=== PATIENT | female | born 1935 | race Caucasian/White ===

== ENCOUNTER 2020-01-19 11:50 | Inpatient (IN) | payer MEDICARE, BC, SELFPAY ==
--- NOTE | ~2020-01-19 | XR_ITS ---
XR hip LT min 3V w AP pelvis 01/19/2020 12:55 Indication: Left hip pain after fall Procedure: 4 views left hip including AP pelvis Comparison: No prior studies for comparison. Findings: There is a nondisplaced left femoral subcapital fracture. Mild osteoarthritis of the hips. There is lower lumbar spondylosis. Sacral foramen are symmetric. Impression: 1: Nondisplaced left femoral subcapital fracture. Reviewed, dictated and finalized at location A. ING MACHINE COLLECTOR Impression: 1: Nondisplaced left femoral subcapital fracture.
--- NOTE | ~2020-01-19 | XR_ITS ---
XR surgery orthopedic 01/20/2020 09:05 Indication: Left hip pinning. Procedure: 3 fluoroscopic images left hip. 45 seconds of fluoroscopy. Comparison: Left hip series dated 01/19/2020 Findings: Interval placement of 3 lag screws transfixing left femoral subcapital fracture in near-tess tomic alignment. Please refer to procedural report. Impression: 1: Near-anatomic alignment of left femoral subcapital fracture status post intraoperative pinning wit h 3 lag screws. Reviewed, dictated and finalized at location A. Impression: 1: Near-anatomic alignment of left femoral subcapital fracture status post intr aoperative pinning with 3 lag screws.
--- NOTE | ~2020-01-19 | XR_ITS ---
XR lumbar spine 2-3V 01/19/2020 12:55 Indication: Low back pain after fall Procedure: 3 views lumbar spine Comparison: 01/20/2017 Findings: There is grade 1 degenerative spondylolisthesis at L4-5. There is disc narrowing at L3-4, L 4-5 and L5-S1. There is moderate multilevel facet hypertrophy. There is an age-indeterminate superior endplate compression fracture of T12. Sacral foramen are symmetric. Impression: 1: Age-indeterminate superior endplate compression fracture of T12. 2: Moderate lumbar spondylosis. Reviewed, dictated and finalized at location A. OR LEGAL SECRETARY Impression: 1: Age-indeterminate superior endplate compression fracture of T12. 2: Moderate lumbar spondylosis.
[2020-01-19 11:55] VITALS: BP 146/101; PULSE 76; RESP 17; TEMP 36.3; O2SAT 95
--- NOTE | 2020-01-19 12:08 | ED.FALL ---
HPI - Fall General Chief Complaint: Fall Stated Complaint: fall, generalized pain Time Seen by Provider: 01/19/20 12:04 Source: patient, family and RN notes reviewed Mode of arrival: ambulatory Limitations: no limitations History of Present Illness HPI Narrative: Pt is a 84 y/o female who presents to the ED with c/o fall happening yesterday. According to the pt's family, she has been complaining of pain and weakness in her lt hip for roughly the past month. She notes that the pt has had several recent falls due to her lt hip giving out on her. Pt states that she was trying to get up from her couch yesterday when her lt hip again gave way causing her to fall onto the ground. She notes that she struck her lt hip on the ground during the fall, but denies any head injury or LOC. Pt reports lt hip pain, back pain, neck pain, and a frontal headache s/p the fall, but denies any CP or ABD pain. She notes that she has been able to walk using her walker after the fall. MD complaint: fall Onset (ago): day(s) (1) Fall from: other (couch) Place fall occurred: home Loss of consciousness: none Location of injury - extremities: Left: thigh (lt hip) Associated symptoms (after fall): headache (frontal), neck pain and other (lt hip pain; back pain) Related Data Home Medications Medication Instructions Recorded Confirmed amlodipine 01/19/20 hydrocodone-acetaminophen 01/19/20 rivastigmine 01/19/20 spironolactone 01/19/20 Allergies Allergy/AdvReac Type Severity Reaction Status Date / Time erythromycin base Allergy Intermediate HIVES, Verified 01/19/20 11:59 SWELLING Sulfa (Sulfonamide Allergy Unknown Verified 01/19/20 12:00 Antibiotics) Review of Systems Review of Systems: All systems reviewed & are unremarkable except as noted in HPI and below Constitutional: Constitutional: Reports headache(s) (frontal) Cardiovascular: Cardiovascular: Denies chest pain and Denies dyspnea Gastrointestinal: Gastrointestinal: Denies abdominal pain, Denies diarrhea, Denies nausea and Denies vomiting Musculoskeletal: Musculoskeletal: Reports back pain, Reports arthralgias (lt hip pain) and Reports neck pain Neurologic: Denies other (head injury; LOC) [facility] Past Medical History Medical History Cataracts, bilateral GI bleed Hemorrhoids History of rectal polyps HTN (hypertension) IBS (irritable bowel syndrome) Shingles UTI (urinary tract infection) Surgical History Surgical History Hx of cataract surgery Hx of dilation and curettage Family History Family History (Updated 06/11/16 @ 23:21 by DOCTOR UNKNOWN) Sibling Patient's brother is in good health Family history of lung cancer Patient's brother is Mother Family history of malignant neoplasm Patient's mother is Father Family history of lung cancer Patient's father is Social History Social History Smoking status: Never smoker Alcohol intake: never Exam Const: General: no acute distress and well developed Orientation/consciousness: oriented to person, oriented to place, oriented to time and patient oriented x3 HENMT: Head: normocephalic Neck: Neck: normal visual inspection and full ROM Chest: Chest palpation & inspection: normal inspection of the chest and no tenderness Resp: Effort & Inspection: normal respiratory effort Auscultation: clear to auscultation bilaterally Cardio: Rate: regular rate Rhythm: regular rhythm GI: GI Palp: No abdominal tenderness and Yes Soft to palpation Back/Spine/Pelvis: Thoracic/Lumbar Spine: paraspinal muscle tenderness (lt lumbar paraspinal tenderness) Skin: General skin exam: normal color and turgor normal Neuro: General: oriented to person, oriented to place, oriented to time and patient oriented x3 Cogni
[2020-01-19 13:13] LABS: Basophils Percent Auto 0.3 % (0.2-1.2); Eosinophils Percent Auto 0.3 % (0-4.4); Hemoglobin 12.1 g/dL (12.0-15.0); Immature Granulocyte Absolute 0.01 K/mm3 (0.00-0.031); Immature Granulocyte Percent A 0.1 % (0-0.5); Lymphocytes Absolute Auto 0.96 K/mm3 (0.9-3.2); Lymphocytes Percent Auto 13.4 % (18.3-44.2); Mean Corpuscular HGB Conc 31.8 g/dl (32-36); Mean Corpuscular Hemoglobin 29.2 pg (26-34); Mean Corpuscular Volume 91.6 fl (80-100); Mean Platelet Volume 9.6 fl (7.4-10.4); Monocytes Absolute Auto 0.6 K/mm3 (0.1-0.6); Monocytes Percent Auto 8.3 % (2.6-8.5); Neutrophils Absolute Auto 5.6 K/mm3 (1.3-6.7); Neutrophils Percent Auto 77.6 % (45.5-73.1); Platelet Count Result 176 k/mm3 (150-375); Red Blood Count 4.15 M/mm3 (4.2-5.4); Red Cell Distribution Width 13.5 % (11.5-14.5); White Blood Count 7.2 K/mm3 (4.5-10.0)
[2020-01-19 13:25] LABS: Blood Urea Nitrogen 15 mg/dL (7-17); Calcium 9.1 mg/dL (8.4-10.2); Carbon Dioxide 28 mmol/L (22-30); Chloride 101 mmol/L (98-107); Estimated CRCL calculation 49 ml/min; Estimated Glomerular Filt Rate > 60; Glucose 113 mg/dL (65-105); Sodium 134 mmol/L (137-145)
[2020-01-19 13:37] VITALS: BP 133/79; PULSE 78; RESP 13; O2SAT 98
[2020-01-19 13:55] LABS: Partial Thromboplastin Time 25.8 SECONDS (22.3-36.8); Prothrombin Time 12.8 Seconds (11.1-14.7)
--- NOTE | 2020-01-19 14:21 | PC.NURSE ---
Patient asking to get up to urinate. Informed patient of strict bed rest. Asked her if she would like to get on bedpan, yelling out in pain while moving, discussed possible patino placement, patient agreeable, dr goldstein agreeable.
[2020-01-19 14:56] VITALS: BP 125/68; PULSE 74; RESP 17; O2SAT 100
--- NOTE | 2020-01-19 18:00 | PM.IMHP ---
H&P: HPI History of Present Illness Chief complaint: Left leg pain after fall last night. Narrative: Belgica Archuleta is an 84-year-old female with dementia and hypertension who presented to the emergency department earlier this afternoon via private vehicle from home for evaluation of left leg pain after a fall that occurred last evening. She has pretty significant short-term memory loss and she is not able to provide an accurate history. Her , daughter, and son are at bedside and they do provide additional history. Last evening at approximately 22:50, she and her were getting ready to go to bed and notes that when the patient stood up she complained of feeling weak, and fell down onto her left side. She was unable to get herself up and so the rolled her onto a mat and they both slept on the floor last night. He attempted to get her up this morning, however she was unable to do so due to severe pain in the left leg and thus they called their son-in-law for help. He was able to pick the patient up in a drove her to the hospital, she where she was found to have a left hip fracture. Her pain is pretty well controlled at this time unless I asked her to move the leg. She does not recall what happened yesterday. denies that she had loss of consciousness and states no head trauma. She denies paresthesias, skin color, and temperature changes distal to the fracture. Review of Systems Review of Systems: Narrative: Twelve systems were reviewed but are not limited given her significant short-term memory loss. Both the patient and her family members deny recent cold or flu symptoms. She has complained of chest pain a couple of times in the past 6 months, but no workup was pursued. It is noted that she had a treadmill stress echo in June 2015 which was unremarkable. Family member states that she is quite spry and active. She never complains of shortness of breath. No nausea, vomiting, or diarrhea. She has had several urinary tract infections in the last several months, frequently complaining of urinary incontinence. She denies such at this time. Except as documented, all other systems were reviewed and are negative. [facility] Past Medical History Medical History (Updated 01/19/20 @ 22:25 by Yesenia Rabago PA-C) Arthritis Chronic neck pain Dementia History of rectal polyps HTN (hypertension) IBS (irritable bowel syndrome) Shingles Surgical History Surgical History Hx of cataract surgery Hx of dilation and curettage Family History Family History Sibling Family history of lung cancer Patient's brother is in good health Patient's brother is Mother Family history of malignant neoplasm Patient's mother is CHF (congestive heart failure) Father Family history of lung cancer Patient's father is Mother No problems noted. Social History Social History (Updated 01/19/20 @ 22:23 by Yesenia Rabago PA-C) Social History: The patient lives in [place] with her of nearly 65 years. They have 5 children. Her daughter Chelsi Rouse is her healthcare power of deputy county attorney, and the patient is a do not resuscitate. She is a lifelong nonsmoker. No alcohol or drug use. Spiritual care concerns: No Agree to blood products: Yes Meds Home Medications and Allergies Home Medications Medication Instructions Recorded Confirmed Type amlodipine 5 mg PO DAILY 01/19/20 01/19/20 History hydrocodone-acetaminophen 1 tablet PO TID PRN 01/19/20 01/19/20 History nxopwpzs-fnt-kctq-FA-lutein 1 tablet PO DAILY 01/19/20 01/19/20 History [Centrum Silver Women] rivastigmine 9.5 mg TRANSDERMAL DAILY 01/19/20 01/19/20 History spironolactone 25 mg PO DAILY 01/19/20 01/19/20 History Allergies Allergy/AdvReac Type Sev
--- NOTE | 2020-01-19 18:20 | PC.NURSE ---
Patient admitted from ER @1510. Patient oriented to room, call light within reach, family members & patient updated on plan of care.
--- NOTE | 2020-01-19 19:48 | ECG_ITS ---
Measurements Intervals [place] Rate: 69 P: 77 CO: 154 QRS: 80 QRSD: 129 T: 51 QT: 391 QTc: 419 Interpretive Statements SINUS RHYTHM RIGHT BUNDLE BRANCH BLOCK BASELINE ARTIFACT- I, II, AVR ABNORMAL ECG Electronically Signed On 01-20-2020 8:23:02 CDT by Scott Brandt D.O.
--- NOTE | 2020-01-19 19:49 | WPDANESEPP ---
Anes - Eval Pre Procedure Procedure: Left hip pinning Date/Time: 01/19/20 19:49 Surgeon: Aurelia Preop Diagnosis: Left femoral neck fracture Pre Op Diagnosis: left femoral neck fracture Patient Data Age: 84 Gender: F Height: 5 ft 5 in Weight: 50.9 kg Last Vital Signs Temp 97.3 F L 01/19/20 11:55 Pulse 74 01/19/20 14:56 Resp 17 01/19/20 14:56 BP 125/68 01/19/20 14:56 Pulse Ox 100 01/19/20 14:56 Allergies Allergy/AdvReac Type Severity Reaction Status Date / Time erythromycin base Allergy Intermediate HIVES, Verified 01/19/20 11:59 SWELLING Sulfa (Sulfonamide Allergy Unknown Verified 01/19/20 12:00 Antibiotics) Home Medications Medication Instructions Recorded Confirmed Type amlodipine 5 mg PO DAILY 01/19/20 01/19/20 History hydrocodone-acetaminophen 1 tablet PO TID PRN 01/19/20 01/19/20 History jgrcgdpg-tnv-wxih-FA-lutein 1 tablet PO DAILY 01/19/20 01/19/20 History [Centrum Silver Women] rivastigmine 9.5 mg TRANSDERMAL DAILY 01/19/20 01/19/20 History spironolactone 25 mg PO DAILY 01/19/20 01/19/20 History Laboratory Tests 01/19/20 01/19/20 01/19/20 13:07 13:07 13:07 WBC 7.2 K/mm3 K/mm3 (4.5-10.0) RBC 4.15 M/mm3 L M/mm3 (4.2-5.4) Hgb 12.1 g/dL g/dL (12.0-15.0) Hct 38.0 % % (37.0-47.0) MCV 91.6 fl fl (80-100) MCH 29.2 pg pg (26-34) MCHC 31.8 g/dl L g/dl (32-36) RDW 13.5 % % (11.5-14.5) Plt Count 176 k/mm3 k/mm3 (150-375) MPV 9.6 fl fl (7.4-10.4) Immature Gran % (Auto) 0.1 % % (0-0.5) Neut % (Auto) 77.6 % H % (45.5-73.1) Lymph % (Auto) 13.4 % L % (18.3-44.2) [place] % (Auto) 8.3 % % (2.6-8.5) Eos % (Auto) 0.3 % % (0-4.4) Baso % (Auto) 0.3 % % (0.2-1.2) Lymph # (Auto) 0.96 K/mm3 K/mm3 (0.9-3.2) [place] # (Auto) 0.6 K/mm3 K/mm3 (0.1-0.6) Eos # (Auto) 0.0 K/mm3 K/mm3 (0-0.3) Baso # (Auto) 0.0 K/mm3 K/mm3 (0.0-0.1) Abs Immat Gran (auto) 0.01 K/mm3 K/mm3 (0.00-0.031) Absolute Neuts (auto) 5.6 K/mm3 K/mm3 (1.3-6.7) Absolute Nucleated RBC 0.0 K/mm3 K/mm3 (0.0-0.012) Nucleated RBC % 0.0 % % (0.0-0.2) PT 12.8 Seconds Seconds (11.1-14.7) INR 1.0 APTT 25.8 SECONDS SECONDS (22.3-36.8) Sodium 134 mmol/L L mmol/L (137-145) Potassium 4.0 mmol/L mmol/L (3.4-5.0) Chloride 101 mmol/L mmol/L (98-107) Carbon Dioxide 28 mmol/L mmol/L (22-30) BUN 15 mg/dL mg/dL (7-17) Creatinine 0.60 mg/dL L mg/dL (0.7-1.0) Estim Creat Clear Calc 49 ml/min ml/min Estimated GFR > 60 (59 - ) Glucose 113 mg/dL H mg/dL (65-105) Calcium 9.1 mg/dL mg/dL (8.4-10.2) Blood Type Antibody Screen 01/19/20 13:45 WBC RBC Hgb Hct MCV MCH MCHC RDW Plt Count MPV Immature Gran % (Auto) Neut % (Auto) Lymph % (Auto) [place] % (Auto) Eos % (Auto) Baso % (Auto) Lymph # (Auto) [place] # (Auto) Eos # (Auto) Baso # (Auto) Abs Immat Gran (auto) Absolute Neuts (auto) Absolute Nucleated RBC Nucleated RBC % PT INR APTT Sodium Potassium Chloride Carbon Dioxide BUN Creatinine Estim Creat Clear Calc Estimated GFR Glucose Calcium Blood Type O Negative Antibody Screen Negative Patient hx anesthesia problems: none Family hx anesthesia problems: none [facility] Past Medical History Medical History (Updated 01/19/20 @ 19:52 by Kirit Angel CRNA) Angina at rest Arthritis Cataracts, bilateral Closed subcapital fracture of left femur Demen
[2020-01-19 22:00] VITALS: BP 131/77; PULSE 75; RESP 16; TEMP 37; O2SAT 97
[2020-01-20] VITALS (13 sets, daily range): BP systolic 98–136; BP diastolic 56–78; PULSE 56–81; RESP 12–18; TEMP 36.2–37.2; O2SAT 95–100; BMI 19.3
--- NOTE | 2020-01-20 03:42 | PC.NURSE ---
Daylight Savings Time For Daylight Savings Time Ending in the Fall - Clocks are moved back. For Daylight Savings Time Beginning in the Spring - Clocks are moved ahead. For [facility], the time of change occurs at 0200 hrs. Time is taken from the food and beverage server. This entry on the patient's chart recognizes the change in time reflected during documentation. Example: 2 entries for vital signs may be charted for 0200 hrs.
[2020-01-20 05:54] LABS: Basophils Percent Auto 0.4 % (0.2-1.2); Eosinophils Absolute Auto 0.2 K/mm3 (0-0.3); Eosinophils Percent Auto 2.5 % (0-4.4); Hematocrit 35.2 % (37.0-47.0); Hemoglobin 11.4 g/dL (12.0-15.0); Immature Granulocyte Absolute 0.01 K/mm3 (0.00-0.031); Immature Granulocyte Percent A 0.1 % (0-0.5); Lymphocytes Percent Auto 26.7 % (18.3-44.2); Mean Corpuscular HGB Conc 32.4 g/dl (32-36); Mean Corpuscular Hemoglobin 29.9 pg (26-34); Mean Corpuscular Volume 92.4 fl (80-100); Mean Platelet Volume 10.1 fl (7.4-10.4); Monocytes Absolute Auto 0.8 K/mm3 (0.1-0.6); Neutrophils Absolute Auto 3.9 K/mm3 (1.3-6.7); Neutrophils Percent Auto 58.3 % (45.5-73.1); Platelet Count Result 168 k/mm3 (150-375); Red Blood Count 3.81 M/mm3 (4.2-5.4); Red Cell Distribution Width 13.6 % (11.5-14.5); White Blood Count 6.8 K/mm3 (4.5-10.0)
[2020-01-20 06:05] LABS: Blood Urea Nitrogen 12 mg/dL (7-17); Calcium 8.6 mg/dL (8.4-10.2); Carbon Dioxide 28 mmol/L (22-30); Chloride 103 mmol/L (98-107); Estimated CRCL calculation 49 ml/min; Estimated Glomerular Filt Rate > 60; Glucose 105 mg/dL (65-105); Potassium 3.8 mmol/L (3.4-5.0); Sodium 135 mmol/L (137-145)
[2020-01-20] MEDS: IBUPROFEN IV 400 MG in SODIUM CHLORIDE 0.9% IV 100 ML 200 MG IVPB (06:08)
[2020-01-20] MEDS: ceFAZolin 2 GM/D5W 50 ML 2 GM/50 ML BAG IVPB (06:54)
--- NOTE | 2020-01-20 07:55 | WPDANESEFPP ---
Anes - Eval Final PreProcedure Day of Procedure 01/20/20 07:55 Patient weight: normal Heart: regular rate and rhythm Lungs: clear to auscultation and normal air movement Airway: Mallampati scale class II Neurological: confused Last oral intake: >/= 8 hours ASA classification: III Emergent: no Anesthetic plan: proceed Anesthesia type and monitoring: general LMA Informed Consent: The patient's anesthetic plan and its attendant risks and benefits were discussed with the patient/family/POA. Questions were solicited and answers provided to the satisfaction of the patient/family/POA.
--- NOTE | 2020-01-20 07:59 | PM.CNOR ---
Assessment and Plan Assessment and plan (1) Closed subcapital fracture of left femur: Qualifiers: Encounter type: initial encounter Qualified Code(s): S72.012A - Unspecified intracapsular fracture of left femur, initial encounter for closed fracture Code(s): S72.012A - Unspecified intracapsular fracture of left femur, initial encounter for closed fracture Status: Acute Assessment and Plan: 84-year-old with increasing left hip pain which became severe yesterday. Impacted left hip subcapital femoral neck fracture on radiographs. Discussed nonoperative and operative treatment options with the patient and family. Risks and benefits of each as well as alternatives were reviewed. All of the patient's questions were answered. The risks of surgery reviewed including but not limited to: Neurovascular damage, wound complication, infection, blood clot, pulmonary embolus, stroke, myocardial infarction, and anesthetic risks up to and including . Continued pain and possible dysfunction were explained. Specific risks of the procedure including later recurrence of deformity. No guarantees were offered. If hardware used, discussed risk of failure/ breakage and possible need for removal. If complications occur, the patient understands the need for further treatment, possible further surgery. Patient verbalizes understanding and wishes to proceed. PLAN: Left hip fracture percutaneous pin fixation (2) Compression fracture of T12 vertebra: Qualifiers: Encounter type: sequela Qualified Code(s): S22.080S - Wedge compression fracture of T11-T12 vertebra, sequela Code(s): S22.080A - Wedge compression fracture of T11-T12 vertebra, initial encounter for closed fracture Status: Acute Assessment and Plan: Remote history of previous T12 compression fracture. Currently without pain, no tenderness on exam. Bilateral lower extremities neurovascular intact. Continue with conservative treatment. History of Present Illness HPI Consult date: 01/20/20 Requesting physician: Senthil Wan MD Consult reason: fracture (Left hip) Chief complaint: Left leg pain after fall last night. Narrative: 84-year-old woman at her usual activity level yesterday when felt pain left hip. Unable to bear weight. Presented to emergency room where radiographs show left hip fracture. Admitted for further care. She had had prodrome pain the past 2 months in the left hip. No other injury. Denies head neck or back problems. Denies loss of consciousness. Complains of left hip pain with movement of leg. Denies numbness or tingling. Review of Systems Constitutional: Constitutional: Denies fever(s) Eyes: Eyes: Denies blurry vision ENT: Reports Normal hearing present Cardiovascular: Cardiovascular: Denies chest pain and Denies dyspnea Respiratory: Respiratory: Denies dyspnea and Denies wheezing Gastrointestinal: Gastrointestinal: Denies abdominal pain Genitourinary: Genitourinary: Denies urinary urgency Musculoskeletal: Musculoskeletal: Reports as per HPI and Denies numbness Integumentary/Breasts: Skin/Breast: Denies changing lesions and Denies sores Neurologic: Reports Normal hearing present, Denies behavioral changes, Denies confusion, Denies numbness and Denies convulsions Psychiatric: Psychiatric: Denies behavioral changes, Denies confusion and Denies hallucinations Endocrine: Endocrine: Denies heat intolerance Hematologic/Lymphatic: Hematologic/Lymphatic: Denies easy bleeding Allergic/Immunologic: Allergic/Immunologic: Denies wheezing PMFSH Past Medical History Medical History Arthritis Chronic neck pain Dementia History of rectal polyps HTN (hypertension) IBS (irritable bowel syndrome) Shingles Surgical History Surgical History Hx of cataract surgery Hx of dilation and curettage
[2020-01-20] MEDS: IBUPROFEN IV 800 MG/200 ML 800 MG/200 ML BAG 400 MG IVPB (08:42)
[2020-01-20] MEDS: BUPIVACAINE/EPINEPHRINE 0.5% 10 ML VIAL INFILTRATE ×2 (09:01→09:07)
--- NOTE | 2020-01-20 09:05 | SUR.OPER ---
Ebl=5ml
[2020-01-20] MEDS: LACTATED RINGERS 1,000 ML 30 ML IV CONT (09:15)
--- NOTE | 2020-01-20 09:18 | P.OP_ITS ---
Procedure Note - Detailed Date of procedure: 01/20/20 Pre-op diagnosis: Left hip subcapital fracture. Post-op diagnosis: same Procedure performed: Left hip pinning Description of procedure: Indications: 84-year-old woman fall onto left hip. L eft hip femoral neck fracture. Patient and power of assistant attorney general discussed treatment options with surgery and non operative treatment including risks and benefits. They desire operative treatment. Implants used: [employer] 6.5 millimeter cannulated screw x3 What was done: Informed consent signed. Extremity marked in preoperative holding area. Patient received intravenous antibiotics. Brought to operating room and underwent general anesthetic by the Anesthesia Team. Positioned supine on the fracture table. Left leg placed into longitudinal traction. Right leg extended out of field. Image intensification brought in and confirmed reduction of fracture. Left hip prepped and draped in usual sterile surgical fashion using ChloraPrep skin solution. Image intensification used to guide the starting position and a longitudinal incision made with 10 blade knife over the lateral proximal femur. Blunt dissection carried down to the lateral femur. Bleeding controlled with electrocautery. First guide pin placed in the inferior center position of the femoral neck and head. Confirmed with image intensification. Two subsequent pins placed superior and anterior and superior and posterior to the 1st pin to create an inverted triangle type pattern. Pins confirmed with image intensification. Length of screw measured, reaming performed. Appropriate size screw placed with good compression and fixation noted for all 3 pins. Guide pins removed. Final image intensification confirmed reduction of fracture and placement of hardware with threads past the fracture line and no protrusion of the hip joint. Wound thoroughly irrigated with antibiotic solution. Fascia repaired with 2 0 Vicryl interrupted sutures. Subcutaneous tissue repaired with 3 0 Monocryl interrupted suture. Skin approximated with 3 0 Monocryl running suture. Sterile dressing applied. Patient awoken from anesthesia, extubated and returned to recovery room in stable condition. All sponge needle and instrument counts correct at the end of the case. Implants: Biomet 6.5 mm cannulated screw with 22 mm thread 70 mm, 75 mm, 80 mm Anesthesia: GLMA and GETA Surgeon: Dominic Sultana MD Naphthalene Still Operator: 1st assistant casino shift manager Estimated blood loss (mL): 5 Drains: No Packing: No Pathology: none sent Complications: None Condition: stable Disposition: PACU
--- NOTE | 2020-01-20 12:44 | PM.IMPN ---
Progress Note: A&P Assessment and Plan (1) Closed subcapital fracture of left femur: Qualifiers: Encounter type: initial encounter Qualified Code(s): S72.012A - Unspecified intracapsular fracture of left femur, initial encounter for closed fracture Code(s): S72.012A - Unspecified intracapsular fracture of left femur, initial encounter for closed fracture Status: Acute Assessment and Plan: Secondary to mechanical fall 01/18/2020. Dr. Sultana consulted and preformed left hip pinning surgery this morning on the patient. The patient is resting comfortably and denies any pain at this time. Pain management per Dr. Sultana Discharge planning per Dr. Sultana Post-op care per Dr. Sultana DVT Prophylaxis per Dr. Sultana (2) Compression fracture of T12 vertebra: Qualifiers: Encounter type: sequela Qualified Code(s): S22.080S - Wedge compression fracture of T11-T12 vertebra, sequela Code(s): S22.080A - Wedge compression fracture of T11-T12 vertebra, initial encounter for closed fracture Status: Acute Assessment and Plan: Age indeterminate superior endplate compression fracture of T12 noted on imaging. Will need PT/OT after hip is repaired. She denies any back pain at this time. Will see if Dr. Sultana recommends a back brace for her compression fracture. No neurologic deficits. (3) HTN (hypertension): Code(s): I10 - Essential (primary) hypertension Status: Acute Assessment and Plan: Blood pressures were reviewed and they are well controlled. Continue antihypertensives and monitor daily. 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 She is on Vicodin at home daily. (5) Dementia: Code(s): F03.90 - Unspecified dementia without behavioral disturbance Status: Acute Assessment and Plan: Suffers from pretty significant short-term memory loss. Will likely need frequent free orientation. Monitor for closely and initiate fall precautions. Time Spent With Patient Time with patient: 25 - 35 minutes Subjective Date/time seen: 01/20/20 12:44 Interval history: Date of service 01/20/2020: The patient is feeling much better after her surgery earlier this morning. She states her pain is under control at this time. She denies any chest pain, shortness of breath, cough, sore throat, nausea, vomiting, abdominal pain, leg swelling, calf pain, headache or any other symptoms at this time. Review of Systems Review of Systems: All systems reviewed & are unremarkable except as noted in HPI and below Exam Narrative: Exam Narrative: General: 84-year-old woman laying flat in bed with the head elevated at 30?. Appears comfortable. In no acute distress. Skin: No jaundice or cyanosis. Good skin turgor. Neck: Full range of motion. Supple. Respiratory: Lungs are clear to auscultation bilaterally. No bony chest wall tenderness. Cardiovascular: The heart has a regular rate and rhythm without murmur. Lower extremities: No lower extremity edema. Distal pulses are easily palpated. No calf tenderness to palpation.Neurovascularly intact distally. Gastrointestinal: The abdomen is soft, nontender and nondistended with active bowel sounds. Psychiatric: Demented. memory intact. Neurologic: Alert and answering questions appropriately as to what is going on right now. She is confused as to what happened when she had fallen. No focal deficits. Speech is clear. No facial drooping. Objective Data Vital Signs Vital Signs: Vital Signs - 24 hr 01/19/20 11:55 01/19/20 13:37 01/19/20 14:56 Temperature 97.3 F L Pulse Rate 76 78 74 Respiratory Rate 17 13 17 Blood Pressure 146/101 H 133/79 125/68 Pulse Oximetry 95 98 100 01/19/20 22:00 01/20/20 06:00
--- NOTE | 2020-01-20 12:44 | P.PNIM_ITS ---
Progress Note: A&P Assessment and Plan (1) Closed subcapital fracture of left femur: Qualifiers: Encounter type: initial encounter Qualified Code(s): S72.012A - Unspecified intracapsular fracture of left femur, initial encounter for closed fracture Code(s): S72.012A - Unspecified intracapsular fracture of left femur, initial encounter for closed fracture Status: Acute Assessment and Plan: * Secondary to mechanical fall 01/18/2020. * Dr. Sultana consulted and preformed left hip pinning surgery this morning on the patient. * The patient is resting comfortably and denies any pain at this time. * Pain management per Dr. Sultana * Discharge planning per Dr. Sultana * Post-op care per Dr. Sultana * DVT Prophylaxis per Dr. Sultana (2) Compression fracture of T12 vertebra: Qualifiers: Encounter type: sequela Qualified Code(s): S22.080S - Wedge compression fracture of T11-T12 vertebra, sequela Code(s): S22.080A - Wedge compression fracture of T11-T12 vertebra, initial encounter for closed fracture Status: Acute Assessment and Plan: * Age indeterminate superior endplate compression fracture of T12 noted on imaging. * Will need PT/OT after hip is repaired. * She denies any back pain at this time. * Will see if Dr. Sultana recommends a back brace for her compression fracture. * No neurologic deficits. (3) HTN (hypertension): Code(s): I10 - Essential (primary) hypertension Status: Acute Assessment and Plan: * Blood pressures were reviewed and they are well controlled. * Continue antihypertensives and monitor daily. (4) Chronic neck pain: Code(s): M54.2 - Cervicalgia; G89.29 - Other chronic pain Status: Acute Assessment and Plan: * Family members report she has significant arthritic changes in the neck. * She is on Vicodin at home daily. (5) Dementia: Code(s): F03.90 - Unspecified dementia without behavioral disturbance Status: Acute Assessment and Plan: * Suffers from pretty significant short-term memory loss. * Will likely need frequent free orientation. * Monitor for closely and initiate fall precautions. Time Spent With Patient Time with patient: 25 - 35 minutes Subjective Date/time seen: 01/20/20 12:44 Interval history: Date of service 01/20/2020: The patient is feeling much b abilio after her surgery earlier this morning. She states her pain is under control at this time. She denies any chest pain, shortness of breath, cough, sore throat, nausea, vomiting, abdominal pain, leg swelling, calf pain, headache or any other symptoms at this time. Review of Systems Review of Systems: All systems reviewed & are unremarkable except as noted in HPI and below Exam Narrative: Exam Narrative: General: 84-year-old woman laying flat in bed with the head elevated at 30?. Appears comfortable. In no acute distress. Skin: No jaundice or cyanosis. Good skin turgor. Neck: Full range of motion. Supple. Respiratory: Lungs are clear to auscultation bilaterally. No bony chest wall tenderness. Cardiovascular: The heart has a regular rate and rhythm without murmur. Lower extremities: No lower extremity edema. Distal pulses are easily palpated. No calf tenderness to palpation.Neurovascularly intact distally. Gastrointestinal: The abdomen is soft, nontender and nondistended with active bowel sounds. Psychiatric: Demented. memory intact. Neurologic: Alert and answering questions appropr
[2020-01-20] MEDS: AMLODIPINE BESYLATE 5 MG TABLET PO (13:11)
[2020-01-20] MEDS: RIVASTIGMINE TARTRATE 9.5 MG PATCH 1 PATCH TRANSDERM (13:12)
[2020-01-20] MEDS: SPIRONOLACTONE 25 MG TABLET PO (13:12)
[2020-01-20] MEDS: DOCUSATE SODIUM 100 MG CAPSULE PO (19:10)
[2020-01-20] MEDS: FAMOTIDINE 20 MG TABLET PO (21:06)
[2020-01-21 06:00] VITALS: BP 122/60; PULSE 61; RESP 20; TEMP 36.9; O2SAT 99
--- NOTE | 2020-01-21 06:49 | PC.NURSE ---
confused and disoriented, called daughter henrique who had been here until 2100, reoriented and back to sleep, attempting to get out of bed at 0630, slapping at nurse, says she is going home to have coffee with her , unable to reorientate for half an hour, 1 on 1--now allows this nurse to assist back to bed and she says she will wait until henrique gets here. bed alarm on, comfort measures offered
[2020-01-21 07:47] LABS: Basophils Percent Auto 0.2 % (0.2-1.2); Eosinophils Percent Auto 0.4 % (0-4.4); Hematocrit 36.1 % (37.0-47.0); Hemoglobin 11.8 g/dL (12.0-15.0); Immature Granulocyte Absolute 0.04 K/mm3 (0.00-0.031); Immature Granulocyte Percent A 0.4 % (0-0.5); Lymphocytes Absolute Auto 1.97 K/mm3 (0.9-3.2); Lymphocytes Percent Auto 19.6 % (18.3-44.2); Mean Corpuscular HGB Conc 32.7 g/dl (32-36); Mean Corpuscular Hemoglobin 29.9 pg (26-34); Mean Corpuscular Volume 91.6 fl (80-100); Mean Platelet Volume 9.9 fl (7.4-10.4); Monocytes Absolute Auto 1.2 K/mm3 (0.1-0.6); Monocytes Percent Auto 12.2 % (2.6-8.5); Neutrophils Absolute Auto 6.8 K/mm3 (1.3-6.7); Neutrophils Percent Auto 67.2 % (45.5-73.1); Platelet Count Result 186 k/mm3 (150-375); Red Blood Count 3.94 M/mm3 (4.2-5.4); Red Cell Distribution Width 13.5 % (11.5-14.5); White Blood Count 10.1 K/mm3 (4.5-10.0)
[2020-01-21 08:01] LABS: Blood Urea Nitrogen 10 mg/dL (7-17); Calcium 8.9 mg/dL (8.4-10.2); Carbon Dioxide 31 mmol/L (22-30); Chloride 102 mmol/L (98-107); Estimated CRCL calculation 50 ml/min; Estimated Glomerular Filt Rate > 60; Glucose 103 mg/dL (65-105); Potassium 3.5 mmol/L (3.4-5.0); Sodium 139 mmol/L (137-145)
[2020-01-21] MEDS: FAMOTIDINE 20 MG TABLET PO ×2 (08:47→20:20)
[2020-01-21] MEDS: THERAPEUTIC MULTIVITAMINS/MINERALS TAB (*BKC) 1 TABLET PO (08:47)
[2020-01-21] MEDS: FONDAPARINUX SODIUM 2.5 MG/0.5 ML SYRINGE SUB-Q (08:47)
[2020-01-21] MEDS: AMLODIPINE BESYLATE 5 MG TABLET PO (08:47)
[2020-01-21] MEDS: DOCUSATE SODIUM 100 MG CAPSULE PO ×2 (08:49→17:06)
[2020-01-21] MEDS: SPIRONOLACTONE 25 MG TABLET PO (08:49)
[2020-01-21] MEDS: RIVASTIGMINE TARTRATE 9.5 MG PATCH 1 PATCH TRANSDERM (08:49)
--- NOTE | 2020-01-21 09:15 | PM.IMPN ---
Progress Note: A&P Assessment and Plan (1) Closed subcapital fracture of left femur: Qualifiers: Encounter type: initial encounter Qualified Code(s): S72.012A - Unspecified intracapsular fracture of left femur, initial encounter for closed fracture Code(s): S72.012A - Unspecified intracapsular fracture of left femur, initial encounter for closed fracture Status: Acute Assessment and Plan: Secondary to mechanical fall 01/18/2020. Dr. Sultana consulted and preformed a left hip pinning surgery 01/20/2020 The patient is resting comfortably and working with physical therapy at this time. Pain management per Dr. Sultana Discharge planning per Dr. Sultana Post-op care per Dr. Sultana DVT Prophylaxis per Dr. Sultana Continue monitoring patient's symptoms, PT/OT, and see when the patient is stable for discharge from a an orthopedic surgery standpoint (2) Compression fracture of T12 vertebra: Qualifiers: Encounter type: sequela Qualified Code(s): S22.080S - Wedge compression fracture of T11-T12 vertebra, sequela Code(s): S22.080A - Wedge compression fracture of T11-T12 vertebra, initial encounter for closed fracture Status: Acute Assessment and Plan: Age indeterminate superior endplate compression fracture of T12 noted on imaging. Will need PT/OT after hip is repaired. She denies any back pain at this time. Will see if Dr. Sultana recommends a back brace for her compression fracture. No neurologic deficits. (3) HTN (hypertension): Code(s): I10 - Essential (primary) hypertension Status: Acute Assessment and Plan: Blood pressures were reviewed and they are well controlled. Continue antihypertensives and monitor daily. 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 She is on Vicodin at home daily. (5) Dementia: Code(s): F03.90 - Unspecified dementia without behavioral disturbance Status: Acute Assessment and Plan: Suffers from pretty significant short-term memory loss. Will likely need frequent free orientation. Monitor for closely and initiate fall precautions. Time Spent With Patient Time with patient: 25 - 35 minutes Subjective Date/time seen: 01/21/20 09:15 Interval history: Date of service 01/21/2020: The patient is feeling well today. She states she slept well last night but became confused when she woke up this morning as to where she was. Currently her left hip pain is rated 5/10. She denies any chest pain, shortness of breath, cough, sore throat, nausea, vomiting, abdominal pain, leg swelling, calf pain, headache or any other symptoms at this time. Review of Systems Review of Systems: All systems reviewed & are unremarkable except as noted in HPI and below Exam Narrative: Exam Narrative: General: 84-year-old woman sitting up in bed working with physical therapy. Resting comfortably in no acute distress. Skin: No jaundice or cyanosis. Good skin turgor. Neck: Full range of motion. Supple. Respiratory: Lungs are clear to auscultation bilaterally. No bony chest wall tenderness. Cardiovascular: The heart has a regular rate and rhythm without murmur. Lower extremities: No lower extremity edema. Distal pulses are easily palpated. No calf tenderness to palpation. Neurovascularly intact distally. Gastrointestinal: The abdomen is soft, nontender and nondistended with active bowel sounds. Psychiatric: Demented. Neurologic: Alert and answering questions appropriately as to what is going on right now. She is confused as to what happened when she had fallen. No focal deficits. Speech is clear. No facial drooping. Objective Data Vital Signs Vital Signs: Vital Signs - 24 hr 01/20/20 09:30 01/20/20 09:45 01/20/20 10:00
[2020-01-21 09:59] VITALS: O2SAT 96
--- NOTE | 2020-01-21 12:37 | PM.PNORT ---
Progress Note: A&P Assessment and Plan (1) Closed subcapital fracture of left femur: Qualifiers: Encounter type: subsequent encounter Fracture healing: with routine healing Qualified Code(s): S72.012D - Unspecified intracapsular fracture of left femur, subsequent encounter for closed fracture with routine healing Code(s): S72.012A - Unspecified intracapsular fracture of left femur, initial encounter for closed fracture Status: Acute Assessment and Plan: Postoperative day 1., left hip pinning. Patient up to chair, stable, pain controlled. PT/OT with weight-bearing as tolerated. DVT prophylaxis with Arixtra. Patient would like to return home if possible. Subjective Subjective Date/Time Seen: 01/21/20 12:37 Patient with minimal complaints of pain. Up to chair. Exam Const: General: healthy appearing; No in distress or confusion Orientation/consciousness: patient oriented x3 and No confusion HENMT: Head: normal to inspection, normocephalic and atraumatic Eyes: Conjunctivae: conjunctivae normal Sclera: sclerae normal Resp: Effort & Inspection: normal respiratory effort and no audible wheezes Neuro: General: patient oriented x3 and No confusion Extrem: Other: Left hip incision clean dry and intact. Mild swelling. Muscle compartments soft. Negative Homans sign. Able to flex extend ankle and toes. Good sensation to touch with palpable dorsalis pedis and good capillary refill. Psych: Affect: normal affect Objective Data Vital Signs Vital Signs: Vital Signs - 24 hr 01/20/20 13:07 01/20/20 22:00 01/21/20 06:00 Temperature 97.7 F 98.3 F 98.4 F Pulse Rate 81 70 61 Respiratory Rate 18 18 20 Blood Pressure 125/76 123/65 122/60 Pulse Oximetry 98 98 99 01/21/20 09:59 Temperature Pulse Rate Respiratory Rate Blood Pressure Pulse Oximetry 96 Intake/Output Intake/Output: Intake & Output 01/18/20 01/19/20 01/20/20 01/21/20 22:59 22:59 23:59 23:59 Intake Total 570 Output Total 1350 Balance -780 Meds/Results Medications: Active Medications Generic Name Dose Route Start Last Admin Trade Name Freq PRN Reason Stop Dose Admin Acetaminophen 650 mg 01/20/20 10:58 Tylenol Tablet PO Q6H PRN Mild Pain (1-3) or Fever Hydrocodone Bitart/Acetaminophen 1 tab 01/19/20 22:28 01/21/20 07:42 [place] 5-325 Mg PO 1 tab TID PRN Administration Pain Rated 4-6 Al Hydrox/Mg Hydrox/Simethicone 30 ml 01/20/20 10:58 Mylanta PO Q6H PRN Indigestion Amlodipine Besylate 5 mg 01/20/20 09:00 01/21/20 08:47 Norvasc PO 5 mg DAILY [facility] Administration Bisacodyl 10 mg 01/20/20 10:58 Dulcolax Suppository RECTAL DAILY PRN Constipation Docusate Sodium 100 mg 01/20/20 17:00 01/21/20 08:49 Colace Capsule PO 100 mg BID [facility] Administration Famotidine 20 mg 01/20/20 21:00 01/21/20 08:47 Pepcid PO 20 mg Q12HR [facility] Administration Fentanyl Citrate 25 mcg 01/19/20 13:57 01/20/20 05:11 Sublimaze IV PUSH 25 mcg Q3H PRN Administration Pain Rated 7-10 Fondaparinux 2.5 mg 01/21/20 09:00 01/21/20 08:47 Arixtra SUB-Q 2.5 mg DAILY [facility] Administration Ibuprofen 800 mg in 200 mls @ 400 mls/hr 01/20/20 10:58 Caldolor 800 Mg/200 Ml IVPB Q6H PRN Pain Rated 4-6 Magnesium Hydroxide 30 ml 01/20/20 10:58 Milk Of Magnesia PO BID PRN Constipation Multivitamins/Calcium 1 tablet 01/20/20 09:00 01/21/20 08:47 Therapeutic Multivitamins/Minerals PO 1 tablet DAILY [facility] Administration Naloxone HCl 0.1 mg 01/20/20 10:58 Narcan IV PUSH Q2M PRN Opiate Reversal Rivastigmine 1 patch 01/20/20 09:00 01/21/20 08:49 Exelon 9.5 Mg Patch TRANSDERM 1 patch QAM [facility] Administration Spironolactone 25 mg 01/20/20 09:00 01/21/20 08:49 Aldactone PO 25 mg DAILY [facility] Administration Radiology Results: ITS Impressions Lumbar Sp
[2020-01-21 15:42] LABS: Add Urine Microscopic? YES; Appearance Urine Cloudy (Clear); Bacteria Urine Trace /hpf; Bilirubin Urine Negative (Negative); Blood Urine 1+ (Negative); Color Urine Amber (Yellow); Glucose Urine UA Negative (Negative); Ketones Urine Negative (Negative); Leukocyte Esterase Ur 2+ LEU/UL (NEGATIVE); Mucus Urine Heavy /lpf; Nitrate Urine Negative (Negative); Protein Urine Negative (Negative); RBC Urine 21-50 /hpf (0-2); WBC Urine 51-75 /hpf (0-3)
[2020-01-21 22:00] VITALS: BP 113/66; PULSE 66; RESP 20; TEMP 36.4; O2SAT 95
[2020-01-22 05:00] VITALS: BP 115/60; PULSE 66; RESP 20; TEMP 36.5; O2SAT 96
[2020-01-22 06:33] LABS: Blood Urea Nitrogen 15 mg/dL (7-17); Calcium 8.3 mg/dL (8.4-10.2); Carbon Dioxide 31 mmol/L (22-30); Chloride 101 mmol/L (98-107); Estimated CRCL calculation 50 ml/min; Estimated Glomerular Filt Rate > 60; Glucose 97 mg/dL (65-105); Potassium 3.6 mmol/L (3.4-5.0); Sodium 136 mmol/L (137-145)
[2020-01-22 08:25] LABS: Hemoglobin 10.9 g/dL (12.0-15.0); Mean Corpuscular HGB Conc 32.1 g/dl (32-36); Mean Corpuscular Hemoglobin 30.1 pg (26-34); Mean Corpuscular Volume 93.9 fl (80-100); Mean Platelet Volume 10.6 fl (7.4-10.4); Platelet Count Result 184 k/mm3 (150-375); Red Blood Count 3.62 M/mm3 (4.2-5.4); Red Cell Distribution Width 13.6 % (11.5-14.5); White Blood Count 6.5 K/mm3 (4.5-10.0)
[2020-01-22] MEDS: SPIRONOLACTONE 25 MG TABLET PO (09:42)
[2020-01-22] MEDS: FAMOTIDINE 20 MG TABLET PO ×2 (09:42→21:05)
[2020-01-22] MEDS: AMLODIPINE BESYLATE 5 MG TABLET PO (09:42)
[2020-01-22] MEDS: DOCUSATE SODIUM 100 MG CAPSULE PO ×2 (09:42→17:44)
[2020-01-22] MEDS: THERAPEUTIC MULTIVITAMINS/MINERALS TAB (*BKC) 1 TABLET PO (09:42)
[2020-01-22] MEDS: FONDAPARINUX SODIUM 2.5 MG/0.5 ML SYRINGE SUB-Q (09:43)
[2020-01-22] MEDS: RIVASTIGMINE TARTRATE 9.5 MG PATCH 1 PATCH TRANSDERM (09:43)
--- NOTE | 2020-01-22 10:27 | PM.PNORT ---
Progress Note: A&P Assessment and Plan (1) Closed subcapital fracture of left femur: Onset Date: 01/20/20 Qualifiers: Encounter type: subsequent encounter Fracture healing: with routine healing Qualified Code(s): S72.012D - Unspecified intracapsular fracture of left femur, subsequent encounter for closed fracture with routine healing Code(s): S72.012A - Unspecified intracapsular fracture of left femur, initial encounter for closed fracture Status: Acute Assessment and Plan: Postoperative day 2. Left hip pinning. Stable from surgery. No new complaints. Pain control. Continue PT/OT with weight-bearing as tolerated. Disposition when medically stable. Subjective Subjective Date/Time Seen: 01/22/20 07:27 No new complaints. Pain well controlled. Exam Const: General: healthy appearing; No in distress or confusion Orientation/consciousness: patient oriented x3 and No confusion HENMT: Head: normal to inspection, normocephalic and atraumatic Eyes: Conjunctivae: conjunctivae normal Sclera: sclerae normal Resp: Effort & Inspection: normal respiratory effort and no audible wheezes Neuro: General: patient oriented x3 and No confusion Extrem: Other: Left hip incision clean dry and intact. Mild swelling. Muscle compartments soft. Negative Homans sign. Able to flex extend ankle and toes. Good sensation to touch with palpable dorsalis pedis and good capillary refill. Psych: Affect: normal affect Objective Data Vital Signs Vital Signs: Vital Signs - 24 hr 01/21/20 22:00 01/22/20 05:00 Temperature 97.6 F 97.7 F Pulse Rate 66 66 Respiratory Rate 20 20 Blood Pressure 113/66 115/60 Pulse Oximetry 95 96 Intake/Output Intake/Output: Intake & Output 01/19/20 01/20/20 01/21/20 01/22/20 22:59 23:59 23:59 23:59 Intake Total 940 450 Output Total 1950 Balance -1010 450 Meds/Results Medications: Active Medications Generic Name Dose Route Start Last Admin Trade Name Freq PRN Reason Stop Dose Admin Acetaminophen 650 mg 01/20/20 10:58 Tylenol Tablet PO Q6H PRN Mild Pain (1-3) or Fever Hydrocodone Bitart/Acetaminophen 1 tab 01/19/20 22:28 01/22/20 09:43 [place] 5-325 Mg PO 1 tab TID PRN Administration Pain Rated 4-6 Al Hydrox/Mg Hydrox/Simethicone 30 ml 01/20/20 10:58 Mylanta PO Q6H PRN Indigestion Amlodipine Besylate 5 mg 01/20/20 09:00 01/22/20 09:42 Norvasc PO 5 mg DAILY [facility] Administration Bisacodyl 10 mg 01/20/20 10:58 Dulcolax Suppository RECTAL DAILY PRN Constipation Docusate Sodium 100 mg 01/20/20 17:00 01/22/20 09:42 Colace Capsule PO 100 mg BID [facility] Administration Famotidine 20 mg 01/20/20 21:00 01/22/20 09:42 Pepcid PO 20 mg Q12HR [facility] Administration Fentanyl Citrate 25 mcg 01/19/20 13:57 01/20/20 05:11 Sublimaze IV PUSH 25 mcg Q3H PRN Administration Pain Rated 7-10 Fondaparinux 2.5 mg 01/21/20 09:00 01/22/20 09:43 Arixtra SUB-Q 2.5 mg DAILY [facility] Administration Ibuprofen 800 mg in 200 mls @ 400 mls/hr 01/20/20 10:58 Caldolor 800 Mg/200 Ml IVPB Q6H PRN Pain Rated 4-6 Magnesium Hydroxide 30 ml 01/20/20 10:58 Milk Of Magnesia PO BID PRN Constipation Multivitamins/Calcium 1 tablet 01/20/20 09:00 01/22/20 09:42 Therapeutic Multivitamins/Minerals PO 1 tablet DAILY [facility] Administration Naloxone HCl 0.1 mg 01/20/20 10:58 Narcan IV PUSH Q2M PRN Opiate Reversal Rivastigmine 1 patch 01/20/20 09:00 01/22/20 09:43 Exelon 9.5 Mg Patch TRANSDERM 1 patch QAM [facility] Administration Spironolactone 25 mg 01/20/20 09:00 01/22/20 09:42 Aldactone PO 25 mg DAILY [facility] Administration Radiology Results: ITS Impressions Lumbar Spine X-Ray 01/19/20 12:58 Impression: 1: Age-indeterminate superior endplate compression fracture of T12. 2: Moderate lumbar spondylosis.
[2020-01-22] MEDS: ACETAMINOPHEN 325 MG TABLET 650 MG PO (13:30)
--- NOTE | 2020-01-22 17:40 | PM.IMPN ---
Progress Note: A&P Assessment and Plan (1) Closed subcapital fracture of left femur: Onset Date: 01/20/20 Qualifiers: Encounter type: subsequent encounter Fracture healing: with routine healing Qualified Code(s): S72.012D - Unspecified intracapsular fracture of left femur, subsequent encounter for closed fracture with routine healing Code(s): S72.012A - Unspecified intracapsular fracture of left femur, initial encounter for closed fracture Status: Acute Assessment and Plan: Secondary to mechanical fall 01/18/2020. Dr. Sultana consulted and preformed a left hip pinning surgery; POD2. Patient appears to be doing well postoperatively. Awaiting placement for further rehab Pain management, Discharge planning, Post op care, dvt ppx per Dr. Sultana Continue monitoring patient's symptoms, PT/OT Likely discharge tomorrow if placement found (2) Compression fracture of T12 vertebra: Qualifiers: Encounter type: sequela Qualified Code(s): S22.080S - Wedge compression fracture of T11-T12 vertebra, sequela Code(s): S22.080A - Wedge compression fracture of T11-T12 vertebra, initial encounter for closed fracture Status: Acute Assessment and Plan: Age indeterminate superior endplate compression fracture of T12 noted on imaging. No back pain reported; no neuro deficits Will continue PT/OT (3) HTN (hypertension): Code(s): I10 - Essential (primary) hypertension Status: Acute Assessment and Plan: Blood pressures were reviewed and they are well controlled. 110s sys today Continue antihypertensives and monitor daily. 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 She is on Vicodin at home daily. (5) Dementia: Code(s): F03.90 - Unspecified dementia without behavioral disturbance Status: Acute Assessment and Plan: Suffers from pretty significant short-term memory loss. Monitor closely and initiate fall precautions. Family in room providing orientation Subjective Date/time seen: 01/22/20 17:40 Interval history: Patient is a 84 yo F with history of dementia and hypertension who is here for left hip repair after sustaining a ground level fall and subsequent left hip fracture; POD 2 left hip repair per Dr. Sultana. Patient states she is doing well today. She states her pain is well controlled. She is working well with PT/OT. She is ready to go home/SNF for further rehab. She has no other complaints for me. Denies f/c/ns, headaches, dizziness, lightheadedness, changes in v/h, cp/palpitations, sob/cough, n/v/d/c, abd pain, dysphagia, melena, brbpr, dysuria, hematuria, cloudy urine, calf pain/swelling. Review of Systems Review of Systems: All systems reviewed & are unremarkable except as noted in HPI and below Exam Narrative: Exam Narrative: Patient is sitting upright in bed at time of visit. Family is in room visiting Const: General: cooperative, comfortable, no acute distress, well developed and alert Nutritional Appearance: well nourished HENMT: Head: normocephalic and atraumatic General nose exam: Normal nares present Face and sinus: face symmetric Eyes: General: appearance normal, both eyes and all related structures Sclera: sclerae normal Pupils: Equal, round and reactive pupils present EOM: EOMs intact bilaterally Neck: Neck: trachea midline and supple Resp: Effort & Inspection: normal respiratory effort Auscultation: clear to auscultation bilaterally Cardio: Rate: regular rate Rhythm: regular rhythm Heart sounds: no murmurs GI: Inspection: non-distended GI Palp: No abdomin
[2020-01-22 22:00] VITALS: BP 129/73; PULSE 70; RESP 16; TEMP 36.6; O2SAT 99
[2020-01-23 06:00] VITALS: BP 117/67; PULSE 75; RESP 16; TEMP 36.7; O2SAT 100
[2020-01-23 06:08] LABS: Hematocrit 33.1 % (37.0-47.0); Hemoglobin 10.7 g/dL (12.0-15.0); Mean Corpuscular HGB Conc 32.3 g/dl (32-36); Mean Corpuscular Hemoglobin 30.1 pg (26-34); Mean Corpuscular Volume 93.2 fl (80-100); Mean Platelet Volume 10.4 fl (7.4-10.4); Platelet Count Result 193 k/mm3 (150-375); Red Blood Count 3.55 M/mm3 (4.2-5.4); Red Cell Distribution Width 13.5 % (11.5-14.5); White Blood Count 6.1 K/mm3 (4.5-10.0)
[2020-01-23 07:10] LABS: Blood Urea Nitrogen 22 mg/dL (7-17); Calcium 8.7 mg/dL (8.4-10.2); Carbon Dioxide 29 mmol/L (22-30); Chloride 104 mmol/L (98-107); Estimated CRCL calculation 50 ml/min; Estimated Glomerular Filt Rate > 60; Glucose 103 mg/dL (65-105); Magnesium 2.2 mg/dL (1.6-2.3); Sodium 138 mmol/L (137-145)
--- NOTE | 2020-01-23 10:19 | PM.DS ---
DS: Diagnosis Admitting Diagnosis Admitting Diagnosis: Unspecified intracapsular fracture of left femur, initial encounter for closed fracture Discharge Diagnosis (1) Closed subcapital fracture of left femur: Onset Date: 01/20/20 Qualifiers: Encounter type: subsequent encounter Fracture healing: with routine healing Qualified Code(s): S72.012D - Unspecified intracapsular fracture of left femur, subsequent encounter for closed fracture with routine healing Code(s): S72.012A - Unspecified intracapsular fracture of left femur, initial encounter for closed fracture Status: Acute Assessment and Plan: Secondary to mechanical fall 01/18/2020. Dr. Sultana consulted and preformed a left hip pinning surgery; POD3. Patient appears to be doing well postoperatively. Patient will be going to [facility] for further rehab. Discussed with patient and family and due to underlying dementia, recommended SNF is safest option for further rehab. Pain management, Post op care, dvt ppx per Dr. Sultana Continue monitoring patient's symptoms, PT/OT D/c today (2) Compression fracture of T12 vertebra: Qualifiers: Encounter type: sequela Qualified Code(s): S22.080S - Wedge compression fracture of T11-T12 vertebra, sequela Code(s): S22.080A - Wedge compression fracture of T11-T12 vertebra, initial encounter for closed fracture Status: Acute Assessment and Plan: Age indeterminate superior endplate compression fracture of T12 noted on imaging. No back pain reported; no neuro deficits Will continue PT/OT (3) HTN (hypertension): Code(s): I10 - Essential (primary) hypertension Status: Acute Assessment and Plan: Blood pressures were reviewed and they are well controlled. 110s sys today Continue antihypertensives and monitor daily. 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 She is on Vicodin at home daily. (5) Dementia: Code(s): F03.90 - Unspecified dementia without behavioral disturbance Status: Acute Assessment and Plan: Suffers from pretty significant short-term memory loss. Monitor closely and initiate fall precautions. Family in room providing orientation DS: Summary Hospital Course Reason for hospitalization: Closed subcapital fracture of left femur s/p fall Hospital Course: Patient is a 84-year-old female with dementia and hypertension who presented to the emergency department earlier on 01/18 via private vehicle from home for evaluation of left leg pain after a fall that occurred on evening of 01/17. Patient suffers from short-term memory loss and according to her , she stood up to get ready for bed, felt weak, and fell down onto her left side. The could not help the patient up so he rolled her onto a mat and they both slept on the floor that night; after they awoken and the could not get her up, he called his son-in-law who then brought her to the ED for evaluation where she was found to have a left hip fracture. Please see H&P for further details. Presenting VS: BP 146/101, HR 76, RR 17, temp 97.3, sat 95% RA Presenting Pertinent labs: Na 134. UA showed yaw/cloudy urine, 1+ blood, 4 urobilinogen, 2+ leuk est, 21-50 RBC, 51-75 WBC, tace bacteria, 3-4 hyaline casts, heavy mucus. CBC, coags, BMP, UA otherwise unremarkable Micro: none Imagin/7 lumbar spine xray Impression: 1: Age-indeterminate superior endplate compression fracture of T12. 2: Moderate lumbar spondylosis. 01/18 hip/pelvis xray Impression: 1: Nondisplaced left femoral subcapital fracture. 01/19 intraoperative
[2020-01-23] MEDS: FAMOTIDINE 20 MG TABLET PO (10:51)
[2020-01-23] MEDS: FONDAPARINUX SODIUM 2.5 MG/0.5 ML SYRINGE SUB-Q (10:51)
[2020-01-23] MEDS: AMLODIPINE BESYLATE 5 MG TABLET PO (10:51)
[2020-01-23] MEDS: DOCUSATE SODIUM 100 MG CAPSULE PO (10:51)
[2020-01-23] MEDS: THERAPEUTIC MULTIVITAMINS/MINERALS TAB (*BKC) 1 TABLET PO (10:51)
[2020-01-23] MEDS: RIVASTIGMINE TARTRATE 9.5 MG PATCH 1 PATCH TRANSDERM (10:52)
[2020-01-23] MEDS: SPIRONOLACTONE 25 MG TABLET PO (10:52)
== END 2020-01-23 13:56 | disposition home health service (06) | DRG 481 ==
LOC: ANHED 14:09 → ANH3MEDSUR 14:30
PROVIDERS: Orthopaedic Surgery; Physician Assistant; Admitting Provider Internal Medicine; Emergency Provider Emergency Medicine; PCP Internal Medicine; Visit Provider Internal Medicine
DX: S72.012A Unspecified intracapsular fracture of left femur, initial encounter for closed fracture (principal); S22.080A Wedge compression fracture of T11-T12 vertebra, initial encounter for closed fracture; I10 Essential (primary) hypertension; M54.2 Cervicalgia; G89.29 Other chronic pain; F03.90 Unspecified dementia, unspecified severity, without behavioral disturbance, psychotic disturbance, mood disturbance, and anxiety; K58.9 Irritable bowel syndrome, unspecified; M19.90 Unspecified osteoarthritis, unspecified site; Z98.42 Cataract extraction status, left eye; Z98.41 Cataract extraction status, right eye; W18.39XA Other fall on same level, initial encounter
CPT/HCPCS: 36415; 72100; 73502; 80048; 81001; 83735; 85025; 85027; 85610; 85730; 86850; 86900; 86901; 96365; 96367; 96375; 96376; 97110; 97116; 97161; 97167; 97530; 97535; 99285; A9270; C1713; G0378; J0690; J1100; J1652; J1741; J2405; J2704; J3010; J7120

== ENCOUNTER 2021-01-02 19:44 | Emergency (ER) | payer MEDICARE, BC, SELFPAY ==
[2021-01-02] VITALS (21 sets, daily range): BP systolic 110–147; BP diastolic 72–83; PULSE 72–79; RESP 9–18; TEMP 36.8; O2SAT 95–100
--- NOTE | ~2021-01-02 | CT_ITS ---
EXAMINATION: CT cervical spine wo con EXAM DATE: 01/02/2021 21:52 INDICATION: Neck pain after fall. Initial encounter. TECHNIQUE: Spiral CT of the cervical spine was performed without contrast. Axial images were reviewe d. Coronal and sagittal reformatted images were also reviewed. The dose-length product (DLP) for thi s examination was 107.85 mGy-cm. The exposure was tailored according to patient size (auto mA exposu re control), and iterative reconstruction (ASIR) was used as additional dose reduction technique. ere is no prior study for comparison. FINDINGS: There is no evidence of acute cervical fracture. The odontoid process is intact. Pre-dens space is normal. Prevertebral soft tissue is normal. There are no soft tissue abnormalities identi fied. There is no disc space widening or traumatic vertebral body subluxation suspected. There is a dvanced cervical arthropathy and moderate disc disease at C5-6 and C6-7 A detailed level by level ev aluation of spondylosis can be added as addendum if requested. IMPRESSION: 1. No acute cervical fracture. 2. Spondylosis. Reviewed, dictated and finalized at location A. ING INFORMATICS SPECIALIST
--- NOTE | ~2021-01-02 | XR_ITS ---
EXAMINATION: XR shoulder RT min 2V EXAM DATE: 01/02/2021 20:50 INDICATION: Fall, pain to acromioclavicular region. TECHNIQUE: The following right shoulder projections obtained: frontal projection with internal rotati on, frontal projection with external rotation, Grashey, and scapular Y view (4+ views). There is no prior study for comparison. FINDINGS: Acute closed posttraumatic fracture through the distal aspect of the right clavicle, uncert ain whether or not this involves the nonarticular surface of acromioclavicular joint inferiorly. No o ther acute findings. Moderate shoulder osteoarthritis. Right upper lobe calcified granuloma. IMPRESSION: Acute right clavicular fracture distally. Reviewed, dictated and finalized at location A. ASSEMBLER AIRCRAFT
--- NOTE | 2021-01-02 20:20 | PC.NURSE ---
patient brought to this ED by EMS after fall at home. see initial notes. c/o right shoulder and right arm pain r/t her back. no deformity noted. assessments documented. SL inserted by EMS. on BP and O2 monitors. waiting for further orders from provider.
--- NOTE | 2021-01-02 21:20 | PC.NURSE ---
medication given as ordered. has CT ordered to assess fracture. son in room. updated on plan and expected wait time.
[2021-01-02] MEDS: ACETAMINOPHEN 500 MG TABLET 1000 MG PO (21:35)
--- NOTE | 2021-01-02 22:13 | ED.GENADULT ---
HPI - General Adult General Chief complaint: Fall Stated complaint: fall down stairs Time Seen by Provider: 01/02/21 20:53 History of Present Illness HPI narrative: Patient 85-year-old female who presents the emergency department with chief complaint of right shoulder pain. Patient reports that she was walking up some steps and lost her footing and fell to the ground. The patient had no loss of consciousness initially complained of no neck pain denied hitting her head denied any other pain other than her right shoulder. Patient states the pain is worse with movement and improved with rest Related Data Home Medications Medication Instructions Recorded Confirmed Centrum Silver Women 1 tablet PO DAILY 01/19/20 01/19/20 amlodipine 5 mg PO DAILY 01/19/20 01/19/20 rivastigmine 9.5 mg TRANSDERMAL DAILY 01/19/20 01/19/20 spironolactone 25 mg PO DAILY 01/19/20 01/19/20 ciprofloxacin HCl 250 mg tablet 250 mg PO Q12H 03/19/20 nitrofurantoin macrocrystal 50 mg 50 mg PO Q12H 03/19/20 capsule quetiapine 25 mg tablet 25 mg PO BID 03/19/20 Allergies Allergy/AdvReac Type Severity Reaction Status Date / Time erythromycin base Allergy Intermediate HIVES, Verified 01/02/21 20:39 SWELLING Sulfa (Sulfonamide Allergy Unknown Verified 01/02/21 20:39 Antibiotics) Review of Systems Review of Systems: Narrative: A 10 system review of systems was completed on the patient and is negative except for what is stated in the HPI. Nursing and ancillary documentation was reviewed. [facility] Past Medical History Medical History Arthritis Chronic neck pain Dementia Emphysema/COPD History of rectal polyps HTN (hypertension) IBS (irritable bowel syndrome) Shingles Skin cancer Urinary frequency Vertigo Vision abnormalities Surgical History Surgical History History of hip surgery Hx of cataract surgery Hx of dilation and curettage Family History Family History Sibling Family history of lung cancer Patient's brother is in good health Patient's brother is Mother Family history of malignant neoplasm Patient's mother is CHF (congestive heart failure) Father Family history of lung cancer Patient's father is Mother No problems noted. Social History Social History Social History: The patient lives in [place] with her of nearly 65 years. They have 5 children. Her daughter Chelsi Rouse is her healthcare power of trust and estates attorney, and the patient is a do not resuscitate. She is a lifelong nonsmoker. No alcohol or drug use. Spiritual care concerns: No Agree to blood products: Yes Exam Narrative: Exam Narrative: GENERAL: Well-appearing, well-nourished, and in no acute distress. HEAD: Normocephalic, atraumatic. EYES: PERRLA and EOMI. ENT: Nares clear, no rhinorrhea or epistaxis. Mucous membranes moist. NECK: Supple. CHEST: Clear to auscultation. No respiratory distress. HEART: Regular rate and rhythm. No murmur heard. Normal peripheral pulses. ABDOMEN: Soft, nontender, nondistended, normal active bowel sounds. EXTREMITIES: Normal range of motion. No edema. Tenderness to palpation of the right shoulder SKIN: Warm, dry, no rash. NEURO: No focal deficits. Alert and oriented x3. PSYCH: Normal mood and affect. Course Course Emergency Course: X-ray of the right shoulder shows no evidence of shoulder fracture but there is evidence of a clavicle fracture. CT cervical spine showed no evidence of cervical fracture Vital Signs Vital signs: Vital Signs Respiratory Rate 15 01/02/21 19:52 Temperature 36.8 C 01/02/21 19:54 Pulse Rate 72 01/02/21 22:16 Respiratory Rate 13 01/02/21 2
--- NOTE | 2021-01-02 22:48 | PC.NURSE ---
this RN to room to get patient ready for discharge. patient wants pain meds now and script for home. son present. both want patient medicated despite refusing narcotics earlier on arrival. provider aware.
--- NOTE | 2021-01-02 22:50 | PC.NURSE ---
tramadol dose given. patient sitting on stretcher. SL still in. son now states patient wants to be admitted due to pain level. advised I can let the provider know but to give the pain medication time to work.
[2021-01-02] MEDS: traMADol HCL (*CRX) 50 MG TABLET PO (22:57)
== END 2021-01-02 23:35 | disposition home or self-care (01) ==
PROVIDERS: Emergency Provider Emergency Medicine; PCP Internal Medicine
DX: S42.031A Displaced fracture of lateral end of right clavicle, initial encounter for closed fracture (principal); M19.90 Unspecified osteoarthritis, unspecified site; F03.90 Unspecified dementia, unspecified severity, without behavioral disturbance, psychotic disturbance, mood disturbance, and anxiety; J43.9 Emphysema, unspecified; Z87.19 Personal history of other diseases of the digestive system; K58.9 Irritable bowel syndrome, unspecified; I10 Essential (primary) hypertension; Z85.828 Personal history of other malignant neoplasm of skin; Z98.49 Cataract extraction status, unspecified eye; M47.812 Spondylosis without myelopathy or radiculopathy, cervical region; W10.9XXA Fall (on) (from) unspecified stairs and steps, initial encounter
CPT/HCPCS: 72125; 73030; 99284; A4565; A9270

== ENCOUNTER 2021-05-28 18:30 | Emergency (ER) | payer MEDICARE, BC, SELFPAY ==
[2021-05-28 18:36] VITALS: BP 137/70; PULSE 85; RESP 18; TEMP 36.9; O2SAT 98
[2021-05-28 20:17] VITALS: BP 157/82; PULSE 79; RESP 16; O2SAT 98
--- NOTE | 2021-05-28 20:21 | ED.WOUNDLAC ---
HPI - Wound/Laceration General Chief Complaint: Wound/Laceration Stated Complaint: Wound Rt Leg Time Seen by Provider: 05/28/21 20:15 Source: patient Mode of arrival: ambulatory Limitations: no limitations History of Present Illness HPI narrative: Patient is a 86 year old female who presents with RLE wound with erythema x 1-2 day. Patient's daughter reports that patient tripped and fell approximately 9 days ago and did not seek medical care at that time. Patient has approximately 4 cm healing irregular skin tear. Daughter has been performing wound care daily. Daughter reports increased warmth and redness starting this pm. Patient has mild edema to LLE. Patient has no history of DVT, is not on anticoagulants. Patient denies other complaints at this time. Related Data Home Medications Medication Instructions Recorded Confirmed Centrum Silver Women 1 tablet PO DAILY 01/19/20 01/07/21 amlodipine 5 mg PO DAILY 01/19/20 01/07/21 rivastigmine 9.5 mg TRANSDERMAL DAILY 01/19/20 01/07/21 spironolactone 25 mg PO DAILY 01/19/20 01/07/21 ciprofloxacin HCl 250 mg tablet 250 mg PO Q12H 03/19/20 01/07/21 nitrofurantoin macrocrystal 50 mg 50 mg PO Q12H 03/19/20 01/07/21 capsule quetiapine 25 mg tablet 25 mg PO BID 03/19/20 01/07/21 Allergies Allergy/AdvReac Type Severity Reaction Status Date / Time erythromycin base Allergy Intermediate HIVES, Verified 01/07/21 14:50 SWELLING Sulfa (Sulfonamide Allergy Unknown Verified 01/07/21 14:50 Antibiotics) Review of Systems Review of Systems: Narrative: CONSTITUTIONAL: Denies fever, chills, or sweats. EYES: Denies visual changes, redness, or discharge. ENT: Denies rhinorrhea, congestion, sore throat, or otalgia. CARDIOVASCULAR: Denies chest pain, palpitations, or edema. RESPIRATORY: Denies cough or dyspnea. GASTROINTESTINAL: Denies abdominal pain, nausea, vomiting, or diarrhea. GENITOURINARY: Denies dysuria or hematuria. SKIN: Skin tear and redness to left lower extremity MUSCULOSKELETAL: Denies back pain, joint pain, or myalgia. NEUROLOGIC: Denies headache, numbness, dizziness, or weakness. PSYCHIATRIC: Denies anxiety or depression. [facility] Past Medical History Medical History Arthritis Chronic neck pain Dementia Diarrhea Dizziness Emphysema/COPD Hair loss History of rectal polyps HTN (hypertension) IBS (irritable bowel syndrome) Light headedness Memory loss Nausea Shingles Skin cancer Urinary frequency Vertigo Vision abnormalities Wears glasses Surgical History Surgical History History of hip surgery Hx of cataract surgery Hx of dilation and curettage Family History Family History Sibling Family history of lung cancer Patient's brother is in good health Patient's brother is Mother Family history of malignant neoplasm Patient's mother is CHF (congestive heart failure) Father Family history of lung cancer Patient's father is Mother No problems noted. Social History Social History Social History: The patient lives in [place] with her of nearly 65 years. They have 5 children. Her daughter Chelsi Rouse is her healthcare power of securities attorney, and the patient is a do not resuscitate. She is a lifelong nonsmoker. No alcohol or drug use. Smoking status: Never smoker Spiritual care concerns: No Agree to blood products: Yes Comments At the time of signature, I have reviewed and agree with nursing past medical, surgical, social, and family history unless otherwise noted. Please see nursing chart for further information. There is no relevant family history pertinent to the presenting complaint. Exam Narrative: Exam Narrative: GENERAL: Well-appearing,
== END 2021-05-28 20:51 | disposition home or self-care (01) ==
LOC: ANHED 20:36
PROVIDERS: Emergency Provider Nurse Practitioner; PCP Internal Medicine
DX: L03.116 Cellulitis of left lower limb (principal); F03.90 Unspecified dementia, unspecified severity, without behavioral disturbance, psychotic disturbance, mood disturbance, and anxiety; I10 Essential (primary) hypertension
CPT/HCPCS: 99283

== ENCOUNTER 2022-09-05 12:06 | Emergency (ER) | payer MEDICARE, BC, SELFPAY ==
--- NOTE | ~2022-09-05 | XR_ITS ---
EXAMINATION: XR chest 2V DATE: 09/05/2022 12:52 INDICATION: Left-sided chest wall tenderness. Shortness of breath. TECHNIQUE: PA and lateral views of the chest were obtained. COMPARISON: Chest radiograph dated 04/09/[address] dated 04/10/2014 FINDINGS: Thoracic kyphosis results in increased AP and decreased left right diameter of the thorax. Calcified right upper lobe nodule consistent with old granulomatous disease. No focal airspace opacities, pulmo nary edema, pleural effusion or pneumothorax. Heart size is normal. Chronic mild anterior wedging of a few mid and lower thoracic vertebral bodies. Chronic nonunited fracture at the lateral right clavic le with heterotopic ossification along the coracoclavicular ligament. IMPRESSION: 1. No acute cardiopulmonary disease. Reviewed, dictated and finalized at location A.
[2022-09-05 12:03] VITALS: PULSE 95; RESP 16; TEMP 36.4; O2SAT 98
--- NOTE | 2022-09-05 12:09 | ECG_ITS ---
Measurements Intervals [place] Rate: 86 P: 72 DE: 141 QRS: 81 QRSD: 112 T: 53 QT: 377 QTc: 452 Interpretive Statements SINUS RHYTHM WITH OCCASIONAL SUPRAVENTRICULAR PREMATURE COMPLEXES RIGHT BUNDLE BRANCH BLOCK [120+ ms QRS DURATION, UPRIGHT V1, 40+ ms S IN I/aVL/V4/V5/V6] COMPARED TO ECG 01/19/2020 20:13:25 NO SIGNIFICANT CHANGES Electronically Signed On 09-05-2022 19:47:56 CDT by Bella Dumont M.D.
--- NOTE | 2022-09-05 12:50 | ED.CHESTPAIN ---
HPI - Chest Pain General Chief Complaint: Chest Pain Stated Complaint: CHEST PAIN Time Seen by Provider: 09/05/22 12:37 History of Present Illness HPI narrative: Patient with a history of recent chest injury from 2 weeks ago, dementia, presents with a day of pain in her left chest and somewhat in her right lower chest, she has had symptoms like this in the past, has not taken anything for pain that the daughter is aware of, denies any focal numbness or weakness, nausea or vomiting, shortness of breath. Related Data Home Medications Medication Instructions Recorded Confirmed amlodipine 5 mg tablet 5 mg PO DAILY 01/19/20 01/07/21 multivit with 1 tablet PO DAILY 01/19/20 01/07/21 [id number]-[id number]-JH-lutein 8 mg iron-400 mcg-300 mcg tablet (Centrum Silver Women) rivastigmine 9.5 mg/24 hour 9.5 mg transdermal DAILY 01/19/20 01/07/21 transdermal patch spironolactone 25 mg tablet 25 mg PO DAILY 01/19/20 01/07/21 ciprofloxacin HCl 250 mg tablet 250 mg PO Q12H 03/19/20 01/07/21 nitrofurantoin macrocrystal 50 mg 50 mg PO Q12H 03/19/20 01/07/21 capsule quetiapine 25 mg tablet 25 mg PO BID 03/19/20 01/07/21 Allergies Allergy/AdvReac Type Severity Reaction Status Date / Time erythromycin base Allergy Intermediate HIVES, Verified 01/07/21 14:50 SWELLING Sulfa (Sulfonamide Allergy Unknown Verified 01/07/21 14:50 Antibiotics) Review of Systems Review of Systems: CONST: No fever. HEENT: No sore throat C/V: chest pain RESP: No cough GI: No nausea or vomiting : No dysuria. M/S: Left anterior chest wall pain SKIN: No rash. NEURO: [No headache or focal numbness or weakness] PSYCH: Anxiety PMFSH Past Medical History Medical History Arthritis Chronic neck pain Dementia Diarrhea Dizziness Emphysema/COPD Hair loss History of rectal polyps HTN (hypertension) IBS (irritable bowel syndrome) Light headedness Memory loss Nausea Shingles Skin cancer Urinary frequency Vertigo Vision abnormalities Wears glasses Surgical History Surgical History History of hip surgery Hx of cataract surgery Hx of dilation and curettage Family History Family History Sibling Family history of lung cancer Patient's brother is in good health Patient's brother is Mother Family history of malignant neoplasm Patient's mother is CHF (congestive heart failure) Father Family history of lung cancer Patient's father is Mother No problems noted. Social History Social History Social History: The patient lives in [place] with her of nearly 65 years. They have 5 children. Her daughter Chelsi Rouse is her healthcare power of sports attorney, and the patient is a do not resuscitate. She is a lifelong nonsmoker. No alcohol or drug use. Smoking status: Never smoker Spiritual care concerns: No Agree to blood products: Yes Exam Narrative: EXAMINATION OF ORGAN SYSTEMS/BODY AREAS: Constitutional: Vital signs per nursing GENERAL: Resting comfortably in bed although occasionally will wince when she touches her left chest HEAD: Normal with no signs of head trauma. EYES: EOMI, conjunctiva normal ENT: Hearing grossly intact LUNGS: Nonlabored breathing. HEART: [Regular rate and rhythm], tender to palpation over left anterior chest, no visible rash/bruising ABD: [Soft], [nontender to palpation] EXT: Normal range of motion bilateral upper and lower extremities SKIN: [No rashes or lesions.] NEURO: [Alert. No gross focal sensory or strength deficits.] PSYCH: Normal affect Course Vital Signs Vital signs: Vital Signs Temperature 97.6 F 09/05/22 12:03 Pulse Rate 95 09/05/22 12:03 Respiratory Rate 16 09/05/22 12:03 Pulse Oximetry
[2022-09-05 13:19] LABS: Basophils Absolute Auto 0.1 K/mm3 (0.0-0.1); Basophils Percent Auto 0.6 % (0.2-1.2); Eosinophils Absolute Auto 0.1 K/mm3 (0-0.3); Eosinophils Percent Auto 0.9 % (0-4.4); Hemoglobin 12.4 g/dL (12.0-15.0); Immature Granulocyte Absolute 0.02 K/mm3 (0.00-0.031); Immature Granulocyte Percent A 0.3 % (0-0.5); Lymphocytes Absolute Auto 2.04 K/mm3 (0.9-3.2); Lymphocytes Percent Auto 25.6 % (18.3-44.2); Mean Corpuscular HGB Conc 32.6 g/dl (32-36); Mean Corpuscular Hemoglobin 29.2 pg (26-34); Mean Corpuscular Volume 89.4 fl (80-100); Mean Platelet Volume 9.8 fl (7.4-10.4); Monocytes Absolute Auto 0.8 K/mm3 (0.1-0.6); Monocytes Percent Auto 9.9 % (2.6-8.5); Neutrophils Percent Auto 62.7 % (45.5-73.1); Platelet Count Result 247 k/mm3 (150-375); Red Blood Count 4.25 M/mm3 (4.2-5.4)
[2022-09-05 13:30] LABS: Anion Gap 8 mmol/L (8-16); Blood Urea Nitrogen 13 mg/dL (7-17); Calcium 8.5 mg/dL (8.4-10.2); Carbon Dioxide 28 mmol/L (22-30); Chloride 107 mmol/L (98-107); Estimated CRCL calculation 41 ml/min; Estimated Glomerular Filt Rate > 60; Glucose 102 mg/dL (65-110); Potassium 3.8 mmol/L (3.4-5.0); Sodium 143 mmol/L (137-145)
[2022-09-05 13:40] LABS: Troponin I < 0.012 ng/mL (0.000-0.034)
[2022-09-05] MEDS: ACETAMINOPHEN 500 MG TABLET 1000 MG PO (14:07)
[2022-09-05 14:25] LABS: Add Urine Microscopic? YES; Appearance Urine Cloudy (Clear); Bacteria Urine Trace /hpf; Bilirubin Urine Negative (Negative); Blood Urine 2+ (Negative); Color Urine Yellow (Yellow); Glucose Urine UA Negative (Negative); Ketones Urine Trace mg/dL (Negative); Leukocyte Esterase Ur 3+ LEU/UL (Negative); Nitrate Urine Positive (Negative); Protein Urine Negative (Negative); RBC Urine 21-50 /hpf (0-2); Specific Grav Ur 1.006 (1.001-1.035); Squamous Epithelial Cell Urine Rare /hpf (Few); Urobilinogen Urine Negative mg/dL (<2.0); WBC Urine >75 /hpf
[2022-09-05 14:38] VITALS: BP 142/76; PULSE 82; RESP 16; O2SAT 99
[2022-09-05 15:34] VITALS: BP 143/73; PULSE 82; RESP 18; O2SAT 97
[2022-09-05 16:08] VITALS: BP 138/89; PULSE 80; RESP 16; O2SAT 99
== END 2022-09-05 18:51 ==
PROVIDERS: Emergency Provider Emergency Medicine; PCP Internal Medicine
DX: R07.89 Other chest pain (principal); N39.0 Urinary tract infection, site not specified; F03.90 Unspecified dementia, unspecified severity, without behavioral disturbance, psychotic disturbance, mood disturbance, and anxiety; J43.9 Emphysema, unspecified; I10 Essential (primary) hypertension; K58.9 Irritable bowel syndrome, unspecified; M19.90 Unspecified osteoarthritis, unspecified site; Z85.828 Personal history of other malignant neoplasm of skin; Z98.49 Cataract extraction status, unspecified eye; I45.10 Unspecified right bundle-branch block; I49.1 Atrial premature depolarization
CPT/HCPCS: 36415; 71046; 80048; 81001; 84484; 85025; 87077; 87086; 87186; 93005; 96365; 99284; A4565; A9270; J0696

== ENCOUNTER 2022-10-25 06:57 | Emergency (ER) | payer MEDICARE, BC, SELFPAY ==
--- NOTE | ~2022-10-25 | XR_ITS ---
EXAMINATION: XR hip LT 2V w AP pelvis INDICATION: Left hip pain TECHNIQUE: AP view the pelvis and two views of the left hip are obtained. COMPARISON: 03/19/2020 FINDINGS: Bone alignment is normal. There is no fracture. There is mild osteoarthritis of hips. There are stabilization screws in the left femoral neck. Calcified atherosclerosis is noted. IMPRESSION: 1. No acute osseous abnormality. Reviewed, dictated and finalized at location A. F CLERK
--- NOTE | ~2022-10-25 | XR_ITS ---
EXAMINATION: XR hand LT min 3V INDICATION: Left hand pain TECHNIQUE: Three views of the left hand are obtained. COMPARISON: None available FINDINGS: Bone alignment is normal. There is no fracture. There is moderate osteoarthritis at the tri scaphe and first carpometacarpal joints, at the second through fourth metacarpophalangeal joints, and multiple interphalangeal joints. The soft tissues are unremarkable. IMPRESSION: 1. Polyarticular osteoarthritis without acute osseous abnormality. Reviewed, dictated and finalized at location A. CE TENDER
--- NOTE | ~2022-10-25 | XR_ITS ---
EXAMINATION: XR hand RT min 3V INDICATION: Right hand pain TECHNIQUE: Three views of the right hand are obtained. COMPARISON: None available FINDINGS: Bone alignment is normal. There is no fracture. There is advanced osteoarthritis at the sec ond and third metacarpophalangeal joints and in multiple interphalangeal joints. The soft tissues are unremarkable. IMPRESSION: 1. Polyarticular osteoarthritis without acute osseous abnormality. Reviewed, dictated and finalized at location A. RAM MANAGEMENT SPECIALIST
--- NOTE | ~2022-10-25 | XR_ITS ---
EXAMINATION: XR knee LT min 4V DATE: 10/25/2022 08:09 INDICATION: Left knee contusions and anterior abrasions post fall TECHNIQUE: Anteroposterior, 2 oblique and crosstable lateral views of the left knee were obtained COMPARISON: None. FINDINGS: Alignment is normal. No fracture. Joint spaces appear relatively preserved on nonweightbearing imagi ng. No joint effusion/layering lipohemarthrosis. Sclerotic lesion at the distal metaphyseal region of the left femur with ring and arc-like configuration suggesting an enchondroma with differential incl uding chronic bone infarct. Enthesopathic ossification at the distal quadriceps tendon. No radiopaque foreign bodies. IMPRESSION: 1. No acute osseous abnormality, joint effusion or radiopaque foreign bodies. Reviewed, dictated and finalized at location A. MING MACHINE OPERATOR
--- NOTE | ~2022-10-25 | XR_ITS ---
EXAMINATION: XR knee RT min 4V DATE: 10/25/2022 08:09 INDICATION: Right knee pain TECHNIQUE: Four views of the right knee were obtained. COMPARISON: None. FINDINGS: Alignment is normal. No fracture or osteochondral lesion. There is mild tricompartmental os teoarthritis characterized by tiny marginal osteophytes. No joint effusion/synovitis. Calcified athe rosclerosis is noted. IMPRESSION: 1. No acute osseous abnormality. Reviewed, dictated and finalized at location A. LE AND HARNESS MAKER
--- NOTE | ~2022-10-25 | XR_ITS ---
EXAMINATION: XR ankle LT min 3V DATE: 10/25/2022 08:09 INDICATION: Posterior left ankle pain post fall with limited range of motion TECHNIQUE: Anteroposterior, oblique, mortise, and lateral views of the left ankle were obtained. COMPARISON: None. FINDINGS: Alignment is normal. No fracture. Mild polyarticular osteoarthritis at the ankle and multiple joints in the mid and hindfoot. Suggestion of an osteotomy, likely a bunionectomy at the medial head of the first metatarsal. Small amount of enthesopathic ossification at the distal Achilles tendon. Soft tiss ues are unremarkable with no left ankle joint effusion. IMPRESSION: 1. Mild polyarticular osteoarthritis at the left ankle and visualized foot. No acute osseous abnormal ity. Reviewed, dictated and finalized at location A. TMENT COORDINATOR IMPRESSION: 1. Mild polyarticular osteoarthritis at the left ankle and visualized foot. No acute osseous abnormality.
--- NOTE | ~2022-10-25 | CT_ITS ---
EXAMINATION: CT brain wo con DATE: 10/25/2022 07:41 INDICATION: Head injury. TECHNIQUE: Computed tomography (CT) of the head was performed without intravenous contrast. The mA wa s adjusted according to patient size. Iterative reconstruction technique was employed. The dose-lengt h product was 529.67 mGy-cm. COMPARISON: Head CT 08/16/2017 FINDINGS: There are scattered areas of low attenuation in the cerebral white matter. There is no intr acranial hemorrhage, acute infarction, or abnormal intracranial mass lesion. The ventricles are radha l in size. There are likely changes of ocular lens replacement surgeries. There is mild mucosal thick ening in the paranasal sinuses. The mastoid air cells are normal. IMPRESSION: 1. Worsened extensive nonspecific cerebral white matter disease, which likely represents chronic smal l vessel ischemic disease. Reviewed, dictated and finalized at location A. HAND IMPRESSION: 1. Worsened extensive nonspecific cerebral white matter disease, which likely r epresents chronic small vessel ischemic disease.
--- NOTE | ~2022-10-25 | CT_ITS ---
EXAMINATION: CT cervical spine wo con DATE: 10/25/2022 07:41 INDICATION: Neck injury. TECHNIQUE: Computed tomography (CT) of the cervical spine was performed without intravenous contrast. Automated exposure control and iterative reconstruction technique were employed. The dose-length pro duct was 139.73 mGy-cm. COMPARISON: CT cervical spine 11/01/2021 FINDINGS: The visualized portions of the lung bases demonstrate septal thickening, consistent with mi ld pulmonary edema. Motion artifact is noted. There is kyphosis of lower cervical spine. There is 2 m m anterolisthesis of C3 on C4 and 2 mm retrolisthesis of C5 on C6. Vertebral body heights are normal. There is mildly decreased disc height at C2-C3 and C4-C5 and severely decreased disc height at C5-C6 . The following disc levels are specifically discussed: C2-C3: There is mild right and severe left uncovertebral joint osteoarthritis. There is severe bilate ral facet joint osteoarthritis. There is mild bilateral neural foraminal stenosis. There is no centra l canal stenosis. C3-C4: There is ankylosis of the uncovertebral joints with mild hypertrophy. There is ankylosis of th e facet joints with severe hypertrophy. There is mild bilateral neural foraminal stenosis. There is m ild central canal stenosis. C4-C5: There is moderate left uncovertebral joint osteoarthritis. There is ankylosis of right facet j oint with moderate hypertrophy. There is moderate left facet joint osteoarthritis. There is ankylosis of right facet joint with severe hypertrophy. There is mild right neural foraminal stenosis. There i s mild central canal stenosis. C5-C6: There is severe bilateral uncovertebral joint osteoarthritis. There is severe right and modera te left facet joint osteoarthritis. There is moderate bilateral neural foraminal stenosis. There is m ild central canal stenosis. C6-C7: There is mild bilateral uncovertebral joint osteoarthritis. There is severe bilateral facet justin int osteoarthritis. There is mild bilateral neural foraminal stenosis. There is no central canal sten osis. C7-T1: There is no uncovertebral joint osteoarthritis. There is severe bilateral facet joint osteoart hritis. There is mild bilateral neural foraminal stenosis. There is no central canal stenosis. IMPRESSION: 1. No fracture. 2. Severe cervical spondylosis. Reviewed, dictated and finalized at location A. RNET ASSESSOR
[2022-10-25 06:55] VITALS: BP 135/85; PULSE 99; RESP 17; TEMP 36.6; O2SAT 100
--- NOTE | 2022-10-25 07:12 | ED.FALL ---
HPI - Fall General Chief Complaint: Fall Stated Complaint: hand and knee pain after 4ft ledge fall Time Seen by Provider: 10/25/22 07:08 History of Present Illness HPI Narrative: 87-year-old female presenting to the emergency department for evaluation of head injury, wrist pain after a fall at the care facility. Facility states that she was was attempting to escape when she fell onto the injury. Patient is unsure of what caused the fall, patient reports that she was standing on a ladder and attempting to clean the windows. Patient does report a head injury, bilateral wrist pain and a skin abrasion to the left hand. When patient went to x-ray she also complained of of left hip and left ankle pain. Related Data Home Medications Medication Instructions Recorded Confirmed amlodipine 5 mg tablet 5 mg PO DAILY 01/19/20 01/07/21 multivit with 1 tablet PO DAILY 01/19/20 01/07/21 przqtqnv-whqc-UF-lutein 8 mg iron-400 mcg-300 mcg tablet (Centrum Silver Women) rivastigmine 9.5 mg/24 hour 9.5 mg transdermal DAILY 01/19/20 01/07/21 transdermal patch spironolactone 25 mg tablet 25 mg PO DAILY 01/19/20 01/07/21 ciprofloxacin HCl 250 mg tablet 250 mg PO Q12H 03/19/20 01/07/21 nitrofurantoin macrocrystal 50 mg 50 mg PO Q12H 03/19/20 01/07/21 capsule quetiapine 25 mg tablet 25 mg PO BID 03/19/20 01/07/21 Allergies Allergy/AdvReac Type Severity Reaction Status Date / Time erythromycin base Allergy Intermediate HIVES, Verified 01/07/21 14:50 SWELLING Sulfa (Sulfonamide Allergy Unknown Verified 01/07/21 14:50 Antibiotics) Review of Systems Review of Systems: CONSTITUTIONAL: Denies fever, chills, or sweats. EYES: Denies visual changes, redness, or discharge. ENT: Denies rhinorrhea, congestion, sore throat, or otalgia. CARDIOVASCULAR: Denies chest pain, palpitations, or edema. RESPIRATORY: Denies cough or dyspnea. GASTROINTESTINAL: Denies abdominal pain, nausea, vomiting, or diarrhea. GENITOURINARY: Denies dysuria or hematuria. SKIN: Denies rash or itching. MUSCULOSKELETAL: Denies back pain, joint pain, or myalgia. Left hand injury NEUROLOGIC: Denies headache, numbness, or weakness. [facility] Past Medical History Medical History Arthritis Chronic neck pain Dementia Diarrhea Dizziness Emphysema/COPD Hair loss History of rectal polyps HTN (hypertension) IBS (irritable bowel syndrome) Light headedness Memory loss Nausea Shingles Skin cancer Urinary frequency Vertigo Vision abnormalities Wears glasses Surgical History Surgical History History of hip surgery Hx of cataract surgery Hx of dilation and curettage Family History Family History Sibling Family history of lung cancer Patient's brother is in good health Patient's brother is Mother Family history of malignant neoplasm Patient's mother is CHF (congestive heart failure) Father Family history of lung cancer Patient's father is Mother No problems noted. Social History Social History Social History: The patient lives in [place] with her of nearly 65 years. They have 5 children. Her daughter Chelsi Rouse is her healthcare power of bankruptcy attorney, and the patient is a do not resuscitate. She is a lifelong nonsmoker. No alcohol or drug use. Smoking status: Never smoker Spiritual care concerns: No Agree to blood products: Yes Exam Narrative: APPEARANCE: Well appearing, no pain, no distress, well-nourished. HEAD: normocephalic, left scalp contusion. EYES: PERRLA/EOMI, conjunctivae clear. NOSE: Normal no drainage NECK: Supple. No adenopathy, no masses. RESPIRATORY: Airway patent, respirations nonlabored. Clear to auscultation bilaterally, no rales, rhonch
--- NOTE | 2022-10-25 10:19 | PC.NURSE ---
Report given to VT.
== END 2022-10-25 11:26 ==
PROVIDERS: Emergency Provider Emergency Medicine; PCP Internal Medicine
DX: S00.03XA Contusion of scalp, initial encounter (principal); S60.222A Contusion of left hand, initial encounter; S61.412A Laceration without foreign body of left hand, initial encounter; F03.90 Unspecified dementia, unspecified severity, without behavioral disturbance, psychotic disturbance, mood disturbance, and anxiety; I10 Essential (primary) hypertension; J43.9 Emphysema, unspecified; K58.9 Irritable bowel syndrome, unspecified; M19.072 Primary osteoarthritis, left ankle and foot; M19.032 Primary osteoarthritis, left wrist; M18.9 Osteoarthritis of first carpometacarpal joint, unspecified; Z98.49 Cataract extraction status, unspecified eye; Z85.828 Personal history of other malignant neoplasm of skin; Z87.19 Personal history of other diseases of the digestive system; R90.82 White matter disease, unspecified; M47.812 Spondylosis without myelopathy or radiculopathy, cervical region; W13.8XXA Fall from, out of or through other building or structure, initial encounter
CPT/HCPCS: 70450; 72125; 73130; 73502; 73564; 73610; 99284

== ENCOUNTER 2023-05-22 13:12 | Observation (INO) | payer MEDICARE, BC, SELFPAY ==
--- NOTE | ~2023-05-22 | CT_ITS ---
EXAMINATION: CT pelvis wo con DATE: 05/22/2023 15:20 INDICATION: Right hip pain, severe with ambulation TECHNIQUE: Computed tomography (CT) of the pelvis was performed without intravenous contrast. Automat ed exposure control and iterative reconstruction technique were employed. The dose-length product was 247.03 mGy-cm. COMPARISON: CT abdomen pelvis 01/26/2016. FINDINGS: 3 cannulated screws in the right femoral neck, without hardware-related complication. Decre ased mineralization. Scattered hip and pelvic enthesopathy. Moderate degenerative changes in the lowe r lumbar spine, bilateral hips, and pubic symphysis. Atherosclerotic calcifications. Diverticulosis w ithout diverticulitis. Grade 1 L4-5 anterolisthesis, likely on a degenerative basis. Partial sacraliz ation of L5 on the left. IMPRESSION: No acute osseous finding in the pelvis. Reviewed, dictated and finalized at location K.
--- NOTE | ~2023-05-22 | XR_ITS ---
EXAMINATION: XR hip BI 2V w AP pelvis DATE: 05/22/2023 13:55 INDICATION: Bilateral hip pain. TECHNIQUE: An anteroposterior view of the pelvis and 2 views of each hip were obtained. COMPARISON: Pelvis and left hip radiographs 10/25/2022 FINDINGS: There is old healed fracture of left femoral neck with internal fixation with 3 lag screws. No acute fracture. There is mild osteoarthritis of the hips. There is moderate lumbar spondylosis. IMPRESSION: 1. Mild osteoarthrosis of the hips. Reviewed, dictated and finalized at location A.
[2023-05-22 13:22] VITALS: BP 115/75; PULSE 78; RESP 16; TEMP 36.4; O2SAT 97
--- NOTE | 2023-05-22 15:01 | ED.LOWEXIN ---
HPI - Extremity Injury (Lower) General Chief Complaint: Extremity Injury, Lower Stated Complaint: hip pain-unknown fall Time Seen by Provider: 05/22/23 14:55 History of Present Illness HPI Narrative: Patient is an 88-year-old female presenting with hip pain. Patient resides at a memory care facility. Her family is at bedside to help with the history. They state that she falls frequently but she is normally able to get up and ambulate normally. For the last days she has been having severe pain in her right hip. The care facility noticed that she was struggling this morning so they called her family who brought her in. Currently, the patient denies any complaints. She states she does not know why she is here. Related Data Home Medications Medication Instructions Recorded Confirmed amlodipine 5 mg tablet 5 mg PO DAILY 01/19/20 05/22/23 multivit with 1 tablet PO DAILY 01/19/20 05/22/23 [id number]-bctv-LS-lutein 8 mg iron-400 mcg-300 mcg tablet (Centrum Silver Women) quetiapine 25 mg tablet 25 mg PO BID 03/19/20 05/22/23 fesoterodine 4 mg tablet,extended 4 mg PO DAILY 05/22/23 05/22/23 release 24 hr fluoxetine 10 mg capsule 10 mg PO DAILY 05/22/23 05/22/23 fluoxetine 20 mg capsule 20 mg PO DAILY 05/22/23 05/22/23 mirtazapine 30 mg tablet 30 mg PO DAILY 05/22/23 05/22/23 trazodone 50 mg tablet 50 mg PO HS 05/22/23 05/22/23 trimethoprim 100 mg tablet 100 mg PO DAILY 05/22/23 05/22/23 Allergies Allergy/AdvReac Type Severity Reaction Status Date / Time erythromycin base Allergy Intermediate HIVES, Verified 05/22/23 13:13 SWELLING Sulfa (Sulfonamide Allergy Unknown Verified 05/22/23 13:13 Antibiotics) Review of Systems Review of Systems: ROS unobtainable: Yes unobtainable due to medical condition and other (Underlying dementia) PMFSH Past Medical History Medical History Arthritis Chronic neck pain Dementia Diarrhea Dizziness Emphysema/COPD Hair loss History of rectal polyps HTN (hypertension) IBS (irritable bowel syndrome) Light headedness Memory loss Nausea Shingles Skin cancer Urinary frequency Vertigo Vision abnormalities Wears glasses Surgical History Surgical History History of hip surgery Hx of cataract surgery Hx of dilation and curettage Family History Family History Sibling Family history of lung cancer Patient's brother is in good health Patient's brother is Mother Family history of malignant neoplasm Patient's mother is CHF (congestive heart failure) Father Family history of lung cancer Patient's father is Mother No problems noted. Social History Social History Social History: The patient lives in [place] with her of nearly 65 years. They have 5 children. Her daughter Chelsi Rouse is her healthcare power of trust and estates attorney, and the patient is a do not resuscitate. She is a lifelong nonsmoker. No alcohol or drug use. Smoking status: Never smoker Alcohol intake: never Substance use: never Substance use type: does not use Spiritual care concerns: No Agree to blood products: Yes Exam Narrative: GENERAL: Elderly female sitting in her wheelchair in no acute distress HEAD: Normocephalic, atraumatic. EYES: PERRLA and EOMI. ENT: Nares clear, no rhinorrhea or epistaxis. Mucous membranes moist. NECK: Supple. CHEST: No respiratory distress. HEART: Regular rate and rhythm. Normal peripheral pulses. ABDOMEN: Soft, nontender, nondistended EXTREMITIES: Full ROM of bilateral hips difficult to assess due to patient's unsteadiness, patient is able to flex them though it elicits pain SKIN: Warm, dry, no rash. NEURO: No focal deficits. Kathy
--- NOTE | 2023-05-22 18:05 | PM.IMHP ---
H&P: HPI History of Present Illness Date/Time: 05/22/23 18:05 Chief Complaint: Difficulty walking apparently due to right hip pain/guarding, history of numerous falls and severe advanced dementia. Narrative: ROS/HPI completed by review of records and discussion with previous medical providers as patient has advanced dementia and family was not in the room during exam. Patient has had numerous falls at [facility] care facility but she constantly attempts to ambulate independently anyway. It was noticed today that patient stumbling after 1-2 steps, greatly favoring the right hip. XR and pelvic CT unremarkable for bony cause of symptoms. No erlin bruising or deformity. Patient denies complaint of any pain when questioned. Patient denies all symptoms when questioned. Review of Systems Review of Systems: ROS unobtainable: Yes unobtainable due to mental status (severe dementia) [facility] Past Medical History Medical History (Updated 05/22/23 @ 21:14 by Aleksandar Lake APRN) Arthritis Chronic neck pain Dementia Diarrhea Dizziness Emphysema/COPD Hair loss History of rectal polyps HTN (hypertension) IBS (irritable bowel syndrome) Light headedness Memory loss Nausea Shingles Skin cancer Urinary frequency Vertigo Vision abnormalities Wears glasses Surgical History Surgical History History of hip surgery Hx of cataract surgery Hx of dilation and curettage Family History Family History Sibling Family history of lung cancer Patient's brother is in good health Patient's brother is Mother Family history of malignant neoplasm Patient's mother is CHF (congestive heart failure) Father Family history of lung cancer Patient's father is Mother No problems noted. Social History Social History Social History: The patient lives in [place] with her of nearly 65 years. They have 5 children. Her daughter Chelsi Rouse is her healthcare power of mergers and acquisitions attorney, and the patient is a do not resuscitate. She is a lifelong nonsmoker. No alcohol or drug use. Smoking status: Never smoker Alcohol intake: never Substance use: never Substance use type: does not use Spiritual care concerns: No Agree to blood products: Yes Meds Home Medications and Allergies Home Medications Medication Instructions Recorded Confirmed Type amlodipine 5 mg tablet 5 mg PO DAILY 01/19/20 05/22/23 History multivit with 1 tablet PO DAILY 01/19/20 05/22/23 History dhcdjktu-vbrk-FC-lutein 8 mg iron-400 mcg-300 mcg tablet (Centrum Silver Women) hydrocodone 5 mg-acetaminophen 325 1 tablet PO TID PRN pain (scale 01/23/20 05/22/23 Rx mg tablet score 7-10) #30 tabs quetiapine 25 mg tablet 25 mg PO BID 03/19/20 05/22/23 History omeprazole magnesium 20 mg 20 mg PO DAILY 4 weeks #28 tabs 09/05/22 05/22/23 Rx tablet,delayed release (Prilosec OTC) fesoterodine 4 mg tablet,extended 4 mg PO DAILY 05/22/23 05/22/23 History release 24 hr fluoxetine 10 mg capsule 10 mg PO DAILY 05/22/23 05/22/23 History fluoxetine 20 mg capsule 20 mg PO DAILY 05/22/23 05/22/23 History mirtazapine 30 mg tablet 30 mg PO DAILY 05/22/23 05/22/23 History trazodone 50 mg tablet 50 mg PO HS 05/22/23 05/22/23 History trimethoprim 100 mg tablet 100 mg PO DAILY 05/22/23 05/22/23 History Allergies Allergy/AdvReac Type Severity Reaction Status Date / Time erythromycin base Allergy Intermediate HIVES, Verified 05/22/23 13:13 SWELLING Sulfa (Sulfonamide Allergy Unknown Verified 05/22/23 13:13 Antibiotics) Vital Signs Vital Signs - 24 hr 05/22/23 13:22 Temperature 36.4 C L Pulse Rate 78 Respiratory Rate 16 Blood Pressure 115/75 Pulse Oximetry 97 Oxygen Delivery Room Air Exam Na
[2023-05-22 18:12] LABS: Basophils Absolute Auto 0.1 K/mm3 (0.0-0.1); Basophils Percent Auto 0.7 % (0.2-1.2); Eosinophils Absolute Auto 0.1 K/mm3 (0-0.3); Eosinophils Percent Auto 1.7 % (0-4.4); Hematocrit 40.1 % (37.0-47.0); Hemoglobin 12.8 g/dL (12.0-15.0); Immature Granulocyte Absolute 0.01 K/mm3 (0.00-0.031); Immature Granulocyte Percent A 0.1 % (0-0.5); Lymphocytes Absolute Auto 1.85 K/mm3 (0.9-3.2); Lymphocytes Percent Auto 26.2 % (18.3-44.2); Mean Corpuscular HGB Conc 31.9 g/dl (32-36); Mean Corpuscular Hemoglobin 29.2 pg (26-34); Mean Corpuscular Volume 91.3 fl (80-100); Mean Platelet Volume 9.1 fl (7.4-10.4); Monocytes Absolute Auto 0.8 K/mm3 (0.1-0.6); Monocytes Percent Auto 11.9 % (2.6-8.5); Neutrophils Absolute Auto 4.2 K/mm3 (1.3-6.7); Neutrophils Percent Auto 59.4 % (45.5-73.1); Platelet Count Result 249 k/mm3 (150-375); Red Blood Count 4.39 M/mm3 (4.2-5.4); Red Cell Distribution Width 14.8 % (11.5-14.5); White Blood Count 7.1 K/mm3 (4.5-10.0)
[2023-05-22 18:45] VITALS: BP 158/81; PULSE 67; RESP 16; O2SAT 99
[2023-05-22 20:00] VITALS: PULSE 67; RESP 16; O2SAT 99; BMI 19.6
[2023-05-22 21:37] VITALS: BP 131/99; PULSE 79; RESP 18; TEMP 36.7; O2SAT 93
[2023-05-22 21:55] LABS: Anion Gap 1 mmol/L (8-16); Blood Urea Nitrogen 15 mg/dL (7-17); Calcium 8.4 mg/dL (8.4-10.2); Carbon Dioxide 31 mmol/L (22-30); Chloride 101 mmol/L (98-107); Estimated CRCL calculation 41 ml/min; Estimated Glomerular Filt Rate > 60; Glucose 104 mg/dL (65-110); Potassium 3.9 mmol/L (3.4-5.0); Sodium 133 mmol/L (137-145)
[2023-05-22] MEDS: QUEtiapine FUMARATE 25 MG TABLET PO (22:33)
[2023-05-22] MEDS: traZODone HCL 50 MG TABLET PO (22:33)
[2023-05-23 00:11] LABS: Appearance Urine Clear (Clear); Bacteria Urine None Seen /hpf; Bilirubin Urine Negative (Negative); Blood Urine Trace (Negative); Color Urine Yellow (Yellow); Glucose Urine UA Negative (Negative); Ketones Urine Negative (Negative); Leukocyte Esterase Ur Trace LEU/UL (Negative); Nitrate Urine Negative (Negative); Non Pathogenic Casts 0-2; Protein Urine Negative (Negative); Specific Grav Ur 1.011 (1.001-1.035); Squamous Epithelial Cell Urine None seen /hpf (Few); WBC Urine 0-5 /hpf
[2023-05-23] MEDS: HYDROcodone/acetaminophen (*CRX) 5-325 MG TABLET 1 TAB PO (00:17)
[2023-05-23 00:18] LABS: Add Urine Microscopic? YES
[2023-05-23 05:44] VITALS: BP 122/75; PULSE 63; RESP 17; TEMP 36.3; O2SAT 99
[2023-05-23 06:10] LABS: Hematocrit 36.4 % (37.0-47.0); Hemoglobin 11.7 g/dL (12.0-15.0); Mean Corpuscular HGB Conc 32.1 g/dl (32-36); Mean Corpuscular Hemoglobin 29.5 pg (26-34); Mean Corpuscular Volume 91.9 fl (80-100); Mean Platelet Volume 9.9 fl (7.4-10.4); Platelet Count Result 218 k/mm3 (150-375); Red Blood Count 3.96 M/mm3 (4.2-5.4); Red Cell Distribution Width 14.7 % (11.5-14.5); White Blood Count 6.1 K/mm3 (4.5-10.0)
[2023-05-23 06:19] LABS: Alanine Aminotransferase 17 U/L (6-35); Albumin Level 3.5 g/dL (3.5-5.1); Alkaline Phosphatase 107 U/L (38-126); Anion Gap 1 mmol/L (8-16); Aspartate Amino Transferase 26 U/L (14-36); Bilirubin,Total 0.4 mg/dL (0.2-1.3); Blood Urea Nitrogen 16 mg/dL (7-17); Calcium 8.3 mg/dL (8.4-10.2); Carbon Dioxide 31 mmol/L (22-30); Chloride 100 mmol/L (98-107); Estimated CRCL calculation 47 ml/min; Estimated Glomerular Filt Rate > 60; Glucose 96 mg/dL (65-110); Potassium 3.8 mmol/L (3.4-5.0); Sodium 132 mmol/L (137-145)
[2023-05-23] MEDS: PANTOPRAZOLE 40 MG TABLET PO (08:28)
[2023-05-23] MEDS: QUEtiapine FUMARATE 25 MG TABLET PO ×3 (08:28→16:30)
[2023-05-23] MEDS: ENOXAPARIN 40 MG/0.4 ML SYRINGE SUB-Q (08:28)
[2023-05-23] MEDS: THERAPEUTIC MULTIVITAMINS/MINERALS TAB (*BKC) 1 TABLET PO (08:29)
[2023-05-23] MEDS: TRIMETHOPRIM 100 MG TABLET PO (08:29)
[2023-05-23] MEDS: FLUoxetine HCL 10 MG CAPSULE PO (08:29)
[2023-05-23] MEDS: amLODIPine BESYLATE 5 MG TABLET PO (08:29)
[2023-05-23] MEDS: MIRTAZAPINE 30 MG TABLET PO (08:29)
[2023-05-23] MEDS: FLUoxetine HCL 20 MG CAPSULE PO (08:29)
--- NOTE | 2023-05-23 09:03 | PM.IMPN ---
Progress Note: A&P Assessment and Plan (1) Ambulatory dysfunction: Code(s): R26.2 - Difficulty in walking, not elsewhere classified Status: Acute Assessment and Plan: Patient working with PT and OT to increase strength in order to discharge back to memory care facility. Tylenol changed to scheduled dosing for pain control to see if this assists with ambulation ability. (2) Dementia: Code(s): F03.90 - Unspecified dementia, unspecified severity, without behavioral disturbance, psychotic disturbance, mood disturbance, and anxiety Status: Acute Assessment and Plan: Severe dementia patient pleasant and calm and cooperative at this time. Unable to rely on patient history and ROS, consult the medical records. No family present at time of exam for collaborating information. (3) Multiple falls: Code(s): R29.6 - Repeated falls Status: Acute Assessment and Plan: see above (4) Emphysema/COPD: Code(s): J43.9 - Emphysema, unspecified Status: Acute Assessment and Plan: continued home medications. No evidence of cough, congestion, dyspnea, wheezing. No evidence of current exacerbation. (5) HTN (hypertension): Code(s): I10 - Essential (primary) hypertension Status: Acute Assessment and Plan: Stable, continue home medications Plan Work with therapy to determine if patient will need long-term senior care verses return to Memory Care Facility. Time Spent With Patient Time with patient: 25 - 35 minutes Subjective Date/time seen: 05/23/23 09:03 Interval history: This is an 88-year-old female patient admitted to the hospital due to difficulty ambulating related to multiple falls. Patient has advanced dementia resides in a memory care facility and is noted to wander frequently. Over the past several months she has been falling more frequently. Yesterday she was unable to ambulate so was sent to the emergency department. X-ray of the hip and pelvis CT were negative for bony abnormality. Patient attempts to ambulate able to take a few steps then clutches right hip, low back or upper thigh in pain and is no longer able to ambulate. She has required assist of 2 to get to the restroom and has been placed at the nurse's station for closer monitoring so she does not attempt to get up unassisted. This morning physical therapy was working with patient and noted that she at her lower/ upper thigh the posterior aspect after taking approximately 5 steps. This is noted improvement over the 2 steps she was able to take yesterday. Patient denies any problems or complaints at this time. She was examined in recliner at Nurse's station. Review of Systems Review of Systems: ROS unobtainable: Yes unobtainable due to mental status (severe advanced dementia, no family present--medical records consulted) Exam Narrative: GENERAL: Elderly female reclined in recliner at nurse's station, no acute distress HEAD: Normocephalic, atraumatic. EYES: PERRLA and EOMI. ENT: Nares clear, no rhinorrhea or epistaxis.? Mucous membranes moist. NECK: Supple. CHEST: No respiratory distress. Clear lung sounds. HEART: Regular rate and rhythm. Normal peripheral pulses. No significant murmurs heard. ABDOMEN: Soft, nontender, nondistended EXTREMITIES: No bruising, shortening or rotation. No skin rashes or lesions. No current pain to palpation with special attention to right thigh, hip and low back. No swelling or color changes. SKIN: Warm, dry, no rash. NEURO: No focal deficits.? Alert and oriented x1 which is baseline. PSYCH: Pleasantly confused, calm and cooperative at this time. ? Objective Data Vital Signs Vital Signs: Vital Signs - 24 hr 05/22/23 13:22 05/22/23 18:45 05/22/23 20:00 Temperature 36.4 C L Pulse Rate 78 67 67 Respiratory Rate 16 16 16 Blood Pressure 115/75 158/81 H Pulse Oximetry 97 99 99 Oxygen Delivery Room Air Room Air 05/22/23 21:37
[2023-05-23 11:15] VITALS: BMI 19.6
[2023-05-23] MEDS: ACETAMINOPHEN 325 MG TABLET 650 MG PO ×2 (12:47→16:30)
[2023-05-23 13:48] VITALS: BP 141/85; PULSE 88; RESP 12; TEMP 36.3; O2SAT 96
[2023-05-23] MEDS: LORazepam (*CRX) 1 MG TABLET PO (15:04)
--- NOTE | 2023-05-23 16:30 | PCPTNOTE ---
On 05/23/23, the student, KYLER Lutz, provided care and completed [facility] documentation on this patient. I have reviewed the student's documentation and agree with the findings.
--- NOTE | 2023-05-25 12:07 | PM.DS ---
DS: Admitting Diagnosis Discharge Date 05/23/23 Admitting Diagnosis Ambulatory dysfunction Dementia Multiple falls Emphysema/COPD HTN DS: Discharge Diagnosis Discharge Diagnosis (1) Ambulatory dysfunction: Code(s): R26.2 - Difficulty in walking, not elsewhere classified Status: Acute (2) Multiple falls: Code(s): R29.6 - Repeated falls Status: Acute (3) Dementia: Code(s): F03.90 - Unspecified dementia, unspecified severity, without behavioral disturbance, psychotic disturbance, mood disturbance, and anxiety Status: Acute (4) Emphysema/COPD: Code(s): J43.9 - Emphysema, unspecified Status: Acute (5) HTN (hypertension): Code(s): I10 - Essential (primary) hypertension Status: Acute DS: Summary Hospital Course Reason for hospitalization: This is an 88-year-old female patient with history of dementia and multiple falls who was admitted to the hospital because she was unable to ambulate as usual status post fall with apparent right hip pain and negative imaging. Hospital Course: Patient was admitted to the hospital for observation status. Patient attempted to work with therapy but was having some apparent right hip pain with ambulation. Due to dementia patient unable to ask for p.r.n. pain medication. Decision was made to give Tylenol on a scheduled basis and after 2 doses patient was now ambulating up and down the halls using her walker as usual. Due to patient's severe dementia she was difficult to redirect and keep close eye in her room. It was felt that patient would benefit from returning to familiar environment. Family was contacted in okay with discharge. Facility was contacted and okay with discharge will give Tylenol on a scheduled basis 3 times a day. Labs were unremarkable imaging was unremarkable and patient improved with scheduled Tylenol. Status at Discharge Cognitive/behavioral status at discharge: Awake, confused but conversant, evidence of significant dementia but at baseline Functional status at discharge: uses cane/walker Time Spent with Patient Time attestation: Total time spent providing and/or coordinating discharge services: Time spent: Less than 30 minutes Exam Narrative: GENERAL: Elderly female reclined in recliner at nurse's station, no acute distress HEAD: Normocephalic, atraumatic. EYES: PERRLA and EOMI. ENT: Nares clear, no rhinorrhea or epistaxis.? Mucous membranes moist. NECK: Supple. CHEST: No respiratory distress. Clear lung sounds. HEART: Regular rate and rhythm. Normal peripheral pulses. No significant murmurs heard. ABDOMEN: Soft, nontender, nondistended EXTREMITIES: No bruising, shortening or rotation. No skin rashes or lesions. No current pain to palpation with special attention to right thigh, hip and low back. No swelling or color changes. SKIN: Warm, dry, no rash. NEURO: No focal deficits.? Alert and oriented x1 which is baseline. PSYCH: Pleasantly confused, calm and cooperative at this time. ? DS: Data Data Completed and Pending Completed studies during hospitalization: right hip and pelvis x-ray, pelvis CT, Pending studies at discharge: none Discharge Plan Discharge Attending physician on discharge: Aleksandar Lake Consulting providers: Aleksandar Lake; Matthew Avitia; Suleman Crenshaw Christophe Discharging Clinician: Aleksandar Lake Anticipated Discharge Date/Time: 05/23/23 15:27 Patient Disposition: NH Correction/Asst Living Activity: as tolerated Diet: as tolerated Discharge Instructions: Recommend patient receive Tylenol 650 mg for pain. May give up to every 4 hours as needed. Do not give more than 6 doses in 24 hours. Continue all previous orders Patient Instructions: How to Choose and Use a Walker (GEN), Fall Prevention (DC) Stand Alone Forms: General Discharge Information, Group Home Discharge Discharge Medications: New acetaminophen [Tylenol
== END 2023-05-23 18:40 ==
LOC: ANHED 14:55 → ANH3MEDSUR 18:41
PROVIDERS: Nurse Practitioner; Admitting Provider Hospitalist; Emergency Provider Emergency Medicine; Visit Provider Hospitalist
DX: M16.0 Bilateral primary osteoarthritis of hip (principal); R29.6 Repeated falls; M54.2 Cervicalgia; F03.90 Unspecified dementia, unspecified severity, without behavioral disturbance, psychotic disturbance, mood disturbance, and anxiety; J43.9 Emphysema, unspecified; I10 Essential (primary) hypertension; K58.9 Irritable bowel syndrome, unspecified; Z66 Do not resuscitate; Z79.891 Long term (current) use of opiate analgesic; Z79.899 Other long term (current) drug therapy
CPT/HCPCS: 36415; 72192; 73521; 80048; 80053; 81001; 85025; 85027; 96372; 97161; 97165; 99285; A9270; G0378; J1650

== ENCOUNTER 2023-05-23 21:10 | Emergency (ER) | payer MEDICARE, BC, SELFPAY ==
--- NOTE | ~2023-05-23 | XR_ITS ---
EXAMINATION: XR lumbar spine 2-3V DATE: 05/23/2023 22:27 INDICATION: Low back pain. Fall. TECHNIQUE: 2 views of the lumbar spine were obtained. COMPARISON: Lumbar spine radiographs 01/19/2020 FINDINGS: L5 is a transitional segment. There is 4 degrees dextrocurvature of thoracolumbar spine. Th ere is 4 mm anterolisthesis of L4 on L5. There is mild chronic anterior wedging of T12 vertebral body . There is moderately decreased disc height at L4-L5. There is multilevel facet joint osteoarthritis, severe in lower lumbar spine. There are lag screws in proximal left femur. IMPRESSION: 1. Moderate lumbar spondylosis. Reviewed, dictated and finalized at location E.
--- NOTE | ~2023-05-23 | XR_ITS ---
AP view of the pelvis and AP and lateral views of the right hip Clinical history: Pain Findings: No acute fracture or dislocation is seen. Osseous alignment is anatomic. 3 orthopedic screw s are present within the left femoral neck, probable old, healed fracture deformity. Bilateral hip an d SI joint spaces are preserved. Soft tissues are unremarkable. Impression: No acute abnormality. 3 orthopedic screws in the left femoral neck, with probable underlying old, healed fracture deformity . Reviewed, dictated and finalized at location M. Impression: No acute abnormality. 3 orthopedic screws in the left femoral neck, with probable underlying old, hea led fracture deformity.
--- NOTE | ~2023-05-23 | XR_ITS ---
EXAMINATION: XR hip RT 2V w AP pelvis DATE: 05/23/2023 21:46 INDICATION: Fall. TECHNIQUE: An anteroposterior view of the pelvis and 2 views of right hip were obtained. COMPARISON: Pelvis and hip radiographs 05/22/2023 FINDINGS: There is an old healed fracture of left femoral neck with internal fixation with 3 lag scre ws. No acute fracture. There is mild osteoarthritis of the hips. There is moderate lumbar spondylosis . IMPRESSION: 1. Mild osteoarthritis of the hips. Reviewed, dictated and finalized at location E.
[2023-05-23 21:09] VITALS: BP 154/82; PULSE 73; RESP 14; TEMP 36.6; O2SAT 100
[2023-05-23 22:00] VITALS: BP 130/74; PULSE 90; RESP 19; O2SAT 97
--- NOTE | 2023-05-23 22:00 | PC.NURSE ---
pt. attempting to get out of bed and moved to room 8 to be closer to nursing staff.
--- NOTE | 2023-05-23 22:53 | ED.GENADULT ---
HPI - General Adult General Chief complaint: Fall Stated complaint: FALL RIGHT HIP PAIN Time Seen by Provider: 05/23/23 21:45 History of Present Illness HPI narrative: Patient 88-year-old female who presents the emergency department with chief complaint of fall. Patient was recently discharged from the hospital back to the facility where she lives at and today had another ground-level fall at the facility. Patient reports she is having pain in the right hip area Related Data Home Medications Medication Instructions Recorded Confirmed amlodipine 5 mg tablet 5 mg PO DAILY 01/19/20 05/22/23 multivit with 1 tablet PO DAILY 01/19/20 05/22/23 bvwjqtww-tmrd-IV-lutein 8 mg iron-400 mcg-300 mcg tablet (Centrum Silver Women) quetiapine 25 mg tablet 25 mg PO BID 03/19/20 05/22/23 fesoterodine 4 mg tablet,extended 4 mg PO DAILY 05/22/23 05/22/23 release 24 hr fluoxetine 10 mg capsule 10 mg PO DAILY 05/22/23 05/22/23 fluoxetine 20 mg capsule 20 mg PO DAILY 05/22/23 05/22/23 mirtazapine 30 mg tablet 30 mg PO DAILY 05/22/23 05/22/23 trazodone 50 mg tablet 50 mg PO HS 05/22/23 05/22/23 trimethoprim 100 mg tablet 100 mg PO DAILY 05/22/23 05/22/23 Allergies Allergy/AdvReac Type Severity Reaction Status Date / Time erythromycin base Allergy Intermediate HIVES, Verified 05/22/23 13:13 SWELLING Sulfa (Sulfonamide Allergy Unknown Verified 05/22/23 13:13 Antibiotics) Review of Systems Review of Systems: A 10 system review of systems was completed on the patient and is negative except for what is stated in the HPI. Nursing and ancillary documentation was reviewed. [facility] Past Medical History Medical History Arthritis Chronic neck pain Dementia Diarrhea Dizziness Emphysema/COPD Hair loss History of rectal polyps HTN (hypertension) IBS (irritable bowel syndrome) Light headedness Memory loss Nausea Shingles Skin cancer Urinary frequency Vertigo Vision abnormalities Wears glasses Surgical History Surgical History History of hip surgery Hx of cataract surgery Hx of dilation and curettage Family History Family History Sibling Family history of lung cancer Patient's brother is in good health Patient's brother is Mother Family history of malignant neoplasm Patient's mother is CHF (congestive heart failure) Father Family history of lung cancer Patient's father is Mother No problems noted. Social History Social History Social History: The patient lives in [place] with her of nearly 65 years. They have 5 children. Her daughter Chelsi Rouse is her healthcare power of banking attorney, and the patient is a do not resuscitate. She is a lifelong nonsmoker. No alcohol or drug use. Smoking status: Never smoker Alcohol intake: never Substance use: never Substance use type: does not use Spiritual care concerns: No Agree to blood products: Yes Exam Narrative: GENERAL: Well-appearing, well-nourished, and in no acute distress. HEAD: Normocephalic, atraumatic. EYES: PERRLA and EOMI. ENT: Nares clear, no rhinorrhea or epistaxis. Mucous membranes moist. NECK: Supple. CHEST: Clear to auscultation. No respiratory distress. HEART: Regular rate and rhythm. No murmur heard. Normal peripheral pulses. ABDOMEN: Soft, nontender, nondistended, normal active bowel sounds. EXTREMITIES: Normal range of motion. No edema. Mild tenderness to palpation of the right hip area SKIN: Warm, dry, no rash. NEURO: No focal deficits. Alert and oriented to baseline. PSYCH: Normal mood and affect. Course Vital Signs Vital signs: Vital Signs Temperature 36.6 C 05/23/23
[2023-05-23 23:14] VITALS: BP 100/70; PULSE 80; RESP 14; O2SAT 97
[2023-05-24] VITALS: BP 130/87; PULSE 81; RESP 19; O2SAT 99
--- NOTE | 2023-05-24 00:04 | PC.NURSE ---
Pt. child care teacher noticed pt. out of bed. Pt. found on floor. pt. assisted back to bed. ERP made aware, repeat XR Right hip ordered. pt. has no other signs of injury. pt. bed in low locked position, bed rails up, call light in reach, bed alarm in place. pt. returned back to bed and sitter in room.
== END 2023-05-24 01:35 ==
PROVIDERS: Emergency Provider Emergency Medicine
DX: S70.01XA Contusion of right hip, initial encounter (principal); S39.012A Strain of muscle, fascia and tendon of lower back, initial encounter; I10 Essential (primary) hypertension; F03.90 Unspecified dementia, unspecified severity, without behavioral disturbance, psychotic disturbance, mood disturbance, and anxiety; J43.9 Emphysema, unspecified; W18.30XA Fall on same level, unspecified, initial encounter
CPT/HCPCS: 72100; 73502; 99284

== ENCOUNTER 2023-07-11 14:09 | Emergency (ER) | payer MEDICARE, BC, SELFPAY ==
--- NOTE | ~2023-07-11 | XR_ITS ---
EXAMINATION: XR lumbar spine 2-3V DATE: 07/11/2023 15:13 INDICATION: Fall 5 weeks ago. TECHNIQUE: 3 views of lumbar spine were obtained. COMPARISON: Lumbar spine radiographs 05/23/2023, pelvis CT 05/22/2023 FINDINGS: L5 is a transitional segment. There is 4 degrees dextrocurvature of thoracolumbar spine. Th ere is 4 mm anterolisthesis of L4 on L5. There is a chronic compression fracture of T12. There are di splaced fractures of right superior and inferior pubic rami with some callus formation. There is scle rosis of right sacral ala, likely a healing fracture. There is moderately decreased disc height at L4 -L5. There is multilevel facet joint osteoarthritis, severe in lower lumbar spine. There is a fractur e of left femoral neck with fixation with 3 lag screws. There is moderate osteoarthritis of the hips. IMPRESSION: 1. Healing insufficiency fractures of right sacral ala and right superior and inferior pubic rami. 2. Moderate lumbar spondylosis. Reviewed, dictated and finalized at location E. IMPRESSION: 1. Healing insufficiency fractures of right sacral ala and right superior and i nferior pubic rami. 2. Moderate lumbar spondylosis.
--- NOTE | ~2023-07-11 | XR_ITS ---
EXAMINATION: XR pelvis 1-2V DATE: 07/11/2023 15:13 INDICATION: Fall 5 weeks ago. TECHNIQUE: An anteroposterior view of the pelvis was obtained. COMPARISON: Pelvis and right hip radiographs 05/24/2023 FINDINGS: There are displaced fractures of right superior and inferior pubic rami with new bone forma tion. There is sclerosis of right sacral ala, consistent with a healing fracture. There is a fracture of left femoral neck with internal fixation with 3 lag screws. There is moderate osteoarthritis of t he hips. There is moderate lumbar spondylosis. IMPRESSION: 1. Healing insufficiency fractures of right superior and inferior pubic rami and right sacral ala. 2. Moderate osteoarthritis of the hips. Reviewed, dictated and finalized at location E. IMPRESSION: 1. Healing insufficiency fractures of right superior and inferior pubic rami an d right sacral ala. 2. Moderate osteoarthritis of the hips.
[2023-07-11 14:12] VITALS: BP 141/84; PULSE 78; RESP 18; TEMP 36.7; O2SAT 96
--- NOTE | 2023-07-11 14:24 | ECG_ITS ---
Measurements Intervals [place] Rate: 74 P: 67 MA: 141 QRS: 59 QRSD: 129 T: 56 QT: 438 QTc: 489 Interpretive Statements SINUS RHYTHM RIGHT BUNDLE BRANCH BLOCK [120+ ms QRS DURATION, UPRIGHT V1, 40+ ms S IN I/aVL/V4/V5/V6] ABNORMAL ECG COMPARED TO ECG 09/05/2022 12:11:54 NO SIGNIFICANT CHANGES Electronically Signed On 07-12-2023 11:53:48 CDT by Ady Starr M.D.
--- NOTE | 2023-07-11 14:33 | ED.FALL ---
HPI - Fall General Chief Complaint: Fall Stated Complaint: fall Time Seen by Provider: 07/11/23 14:27 History of Present Illness HPI Narrative: Pt had unwitnessed fall per NH and EMS. POt had outpatient x rays which showed pubic fx and l1 fx of unknown age. Pt has no complaint of back or pelvis pain. Pt denies LOONEY or neck pain. Related Data Home Medications Medication Instructions Recorded Confirmed amlodipine 5 mg tablet 5 mg PO DAILY 01/19/20 06/02/23 quetiapine 25 mg tablet 50 mg PO BID 03/19/20 06/02/23 fesoterodine 4 mg tablet,extended 4 mg PO DAILY 05/22/23 06/02/23 release 24 hr fluoxetine 10 mg capsule 10 mg PO DAILY 05/22/23 06/02/23 fluoxetine 20 mg capsule 20 mg PO DAILY 05/22/23 06/02/23 mirtazapine 30 mg tablet 15 mg PO DAILY 05/22/23 06/02/23 trazodone 50 mg tablet 50 mg PO HS 05/22/23 06/02/23 trimethoprim 100 mg tablet 100 mg PO DAILY 05/22/23 06/02/23 baclofen 5 mg tablet 5 mg PO BID 07/11/23 07/11/23 buspirone 10 mg tablet mg 07/11/23 lorazepam 0.5 mg tablet 0.5 mg PO BID PRN Anxiety 07/11/23 Allergies Allergy/AdvReac Type Severity Reaction Status Date / Time erythromycin base Allergy Intermediate HIVES, Verified 07/11/23 14:34 SWELLING Sulfa (Sulfonamide Allergy Unknown Verified 07/11/23 14:34 Antibiotics) Review of Systems Review of Systems: All systems reviewed & are unremarkable except as noted in HPI and below PMFSH Past Medical History Medical History Arthritis Chronic neck pain Dementia Diarrhea Dizziness Emphysema/COPD Hair loss History of rectal polyps HTN (hypertension) IBS (irritable bowel syndrome) Light headedness Memory loss Nausea Shingles Skin cancer Urinary frequency Vertigo Vision abnormalities Wears glasses Surgical History Surgical History History of hip surgery Hx of cataract surgery Hx of dilation and curettage Family History Family History Sibling Family history of lung cancer Patient's brother is in good health Patient's brother is Mother Family history of malignant neoplasm Patient's mother is CHF (congestive heart failure) Father Family history of lung cancer Patient's father is Mother No problems noted. Social History Social History Social History: The patient lives in [place] with her of nearly 65 years. They have 5 children. Her daughter Chelsi Rouse is her healthcare power of insurance defense attorney, and the patient is a do not resuscitate. She is a lifelong nonsmoker. No alcohol or drug use. Smoking status: Never smoker Alcohol intake: never Substance use: never Substance use type: does not use Spiritual care concerns: No Agree to blood products: Yes Exam Const: General: healthy appearing Nutritional Appearance: well nourished Orientation/consciousness: patient oriented x3 Limitations: no limitations HENMT: Head: normal to inspection Neck: Neck: normal visual inspection Resp: Effort & Inspection: normal respiratory effort Auscultation: clear to auscultation bilaterally Cardio: Rate: regular rate Rhythm: regular rhythm GI: GI Palp: Yes Soft to palpation Auscultation: normal bowel sounds Skin: General skin exam: normal color Rashes: no rashes Wounds: no wounds Neuro: General: patient oriented x3, moves all extremities and no focal motor deficits Speech: normal speech Extrem: General: normal to inspection and no clubbing, cyanosis or edema Other: no rotation or deformity of hips no tenderness on paplpation of pubis or low back. Psych: Mental Status: mental status grossly normal Course Vital Signs Vital signs: Vital Signs Temperature 98.1 F 07/11/23 14:12
[2023-07-11 14:50] LABS: Basophils Percent Auto 0.3 % (0.2-1.2); Eosinophils Absolute Auto 0.1 K/mm3 (0-0.3); Eosinophils Percent Auto 0.7 % (0-4.4); Hemoglobin 11.3 g/dL (12.0-15.0); Immature Granulocyte Absolute 0.04 K/mm3 (0.00-0.031); Immature Granulocyte Percent A 0.4 % (0-0.5); Lymphocytes Percent Auto 12.4 % (18.3-44.2); Mean Corpuscular HGB Conc 31.4 g/dl (32-36); Mean Corpuscular Hemoglobin 28.8 pg (26-34); Mean Corpuscular Volume 91.8 fl (80-100); Mean Platelet Volume 9.4 fl (7.4-10.4); Monocytes Absolute Auto 0.9 K/mm3 (0.1-0.6); Monocytes Percent Auto 8.9 % (2.6-8.5); Neutrophils Absolute Auto 7.5 K/mm3 (1.3-6.7); Neutrophils Percent Auto 77.3 % (45.5-73.1); Platelet Count Result 230 k/mm3 (150-375); Red Blood Count 3.92 M/mm3 (4.2-5.4); Red Cell Distribution Width 14.6 % (11.5-14.5); White Blood Count 9.7 K/mm3 (4.5-10.0)
[2023-07-11 15:00] LABS: Alanine Aminotransferase 18 U/L (6-35); Albumin Level 3.4 g/dL (3.5-5.1); Alkaline Phosphatase 215 U/L (38-126); Anion Gap 7 mmol/L (8-16); Aspartate Amino Transferase 32 U/L (14-36); Bilirubin,Total 0.3 mg/dL (0.2-1.3); Blood Urea Nitrogen 17 mg/dL (7-17); Calcium 7.9 mg/dL (8.4-10.2); Carbon Dioxide 27 mmol/L (22-30); Chloride 105 mmol/L (98-107); Estimated CRCL calculation 44 ml/min; Estimated Glomerular Filt Rate > 60; Glucose 114 mg/dL (65-110); Potassium 3.2 mmol/L (3.4-5.0); Sodium 139 mmol/L (137-145)
[2023-07-11 15:01] LABS: INR 1.1; Partial Thromboplastin Time 27.1 SECONDS (22.3-36.8); Prothrombin Time 14.3 Seconds (11.1-14.7)
[2023-07-11 16:13] VITALS: BP 138/81; PULSE 86; RESP 18; O2SAT 100
== END 2023-07-11 17:30 | disposition home or self-care (01) ==
PROVIDERS: Emergency Provider Emergency Medicine
DX: S32.511A Fracture of superior rim of right pubis, initial encounter for closed fracture (principal); S32.19XA Other fracture of sacrum, initial encounter for closed fracture; F03.90 Unspecified dementia, unspecified severity, without behavioral disturbance, psychotic disturbance, mood disturbance, and anxiety; I10 Essential (primary) hypertension; J43.9 Emphysema, unspecified; M16.0 Bilateral primary osteoarthritis of hip; Z87.19 Personal history of other diseases of the digestive system; Z85.828 Personal history of other malignant neoplasm of skin; Z98.49 Cataract extraction status, unspecified eye; M47.816 Spondylosis without myelopathy or radiculopathy, lumbar region; I45.10 Unspecified right bundle-branch block; W19.XXXA Unspecified fall, initial encounter
CPT/HCPCS: 36415; 72100; 72170; 80053; 85025; 85610; 85730; 93005; 99284

== ENCOUNTER 2023-07-31 15:35 | Emergency (ER) | payer MEDICARE, BC, SELFPAY ==
[2023-07-31] VITALS (13 sets, daily range): BP systolic 129–157; BP diastolic 60–79; PULSE 55–73; RESP 11–22; TEMP 36.8; O2SAT 97–100
--- NOTE | ~2023-07-31 | CT_ITS ---
EXAMINATION: CT brain wo con DATE: 07/31/2023 17:06 INDICATION: Fall TECHNIQUE: Computed tomography (CT) of the head was performed without intravenous contrast. Sagittal and coronal reconstructions were performed. The mA was adjusted according to patient size. Iterative reconstruction technique was employed. The dose-length product was 605.33 mGy-cm. COMPARISON: head CT dated 10/25/2022 FINDINGS: No calvarial fracture. No acute intracranial hemorrhage, acute infarction or abnormal extra axial flu id collection. There is moderate scattered white matter hypoattenuation consistent with chronic small vessel ischemic disease. Symmetric prominence of the sulci and ventricles consistent with moderate a ge-appropriate diffuse cerebral volume loss. No mass/mass effect. Changes of bilateral intraocular le ns replacement. The orbits, paranasal sinuses and mastoid air cells are normal. Intracranial calcifie d cerebral atherosclerosis is noted. IMPRESSION: 1. No fracture or acute intracranial process. 2. Age-related changes including moderate diffuse volume loss and moderate scattered white matter hyp oattenuation consistent with chronic small vessel ischemic disease. Reviewed, dictated and finalized at location A. IMPRESSION: 1. No fracture or acute intracranial process. 2. Age-related changes including moderate diffuse volume loss and moderate scat tered white matter hypoattenuation consistent with chronic small vessel ischemi c disease.
--- NOTE | ~2023-07-31 | XR_ITS ---
EXAMINATION: XR hip RT 2V w AP pelvis DATE: 07/31/2023 17:52 INDICATION: Fall with recent pelvic fractures TECHNIQUE: Anteroposterior view of the pelvis and anteroposterior and frog-leg lateral views of the r ight hip were obtained. COMPARISON: None. FINDINGS: Chronic subcapital fracture of the proximal left femur which is fixed with 3 cannulated lag screws. I ncreased callus formation and no change in displacement of a now subacute fractures of the right supe rior and inferior pubic rami. No new fractures identified. Moderate lower lumbar spondylosis. Mild to moderate bilateral hip and sacroiliac osteoarthritis. IMPRESSION: 1. Healing subacute fractures of the right superior and inferior pubic rami. No new fractures identif ied. Reviewed, dictated and finalized at location A. IMPRESSION: 1. Healing subacute fractures of the right superior and inferior pubic rami. No new fractures identified.
--- NOTE | ~2023-07-31 | CT_ITS ---
EXAMINATION: CT cervical spine wo con DATE: 07/31/2023 17:06 INDICATION: Fall with head injury TECHNIQUE: Computed tomography (CT) of the cervical spine was performed without intravenous contrast. Automated exposure control and iterative reconstruction technique were employed. The dose-length pro duct was 93.94 mGy-cm. COMPARISON: 10/25/2022 and 01/02/2021 FINDINGS: Unchanged mild kyphosis in the lower cervical spine with 2 mm retrolisthesis C5 on C6. Chronic appear ing T2 compression fracture with 40% anterior vertebral body height loss which is new since the prior study. Cervical vertebral body heights are normal. No acute fracture. Severe osteoarthritis at the a tlantoaxial articulation. Moderate disc height loss at C4-C5 and C5-C6 and mild disc height loss at C 3-C4 and T1-T2 through T3-T4. There is anterior and posterior fusion on the left C3-C4 and on the rig ht at C3-C5. There is bilateral multilevel severe cervical and upper thoracic facet osteoarthritis is severe bilateral uncovertebral osteoarthritis at C5-C6. Mild to moderate uncovertebral osteoarthriti s remaining cervical levels. There is mild neural foraminal stenosis at C4-C5 and C5-C6 and bilateral multilevel mild to moderate cervical neural foraminal stenosis. See prior report for level by level detail. Unchanged multinodular goiter, the largest nodule 1.4 cm hypodense nodule in the left thyroid lobe. Mild pulmonary edema at the apices of the lungs. IMPRESSION: 1. Severe cervical spondylosis with no acute osseous abnormality. 2. Chronic appearing T2 compression fracture with 40% anterior vertebral body height loss which is ne w since the prior study. 3. Mild pulmonary edema at the apices of lungs. Reviewed, dictated and finalized at location A. IMPRESSION: 1. Severe cervical spondylosis with no acute osseous abnormality. 2. Chronic appearing T2 compression fracture with 40% anterior vertebral body h eight loss which is new since the prior study. 3. Mild pulmonary edema at the apices of lungs.
--- NOTE | 2023-07-31 17:35 | ED.FALL ---
HPI - Fall General Chief Complaint: Fall Stated Complaint: fall Time Seen by Provider: 07/31/23 16:28 Source: patient and EMS Mode of arrival: EMS History of Present Illness HPI Narrative: 88 years old white female came from halfway with ground fall backward while walking. No loss of consciousness,. Patient denies any pain. Patient is oriented to her name and her birthdate. Related Data Home Medications Medication Instructions Recorded Confirmed amlodipine 5 mg tablet 5 mg PO DAILY 01/19/20 06/02/23 quetiapine 25 mg tablet 50 mg PO BID 03/19/20 06/02/23 fesoterodine 4 mg tablet,extended 4 mg PO DAILY 05/22/23 06/02/23 release 24 hr fluoxetine 10 mg capsule 10 mg PO DAILY 05/22/23 06/02/23 fluoxetine 20 mg capsule 20 mg PO DAILY 05/22/23 06/02/23 mirtazapine 30 mg tablet 15 mg PO DAILY 05/22/23 06/02/23 trazodone 50 mg tablet 50 mg PO HS 05/22/23 06/02/23 trimethoprim 100 mg tablet 100 mg PO DAILY 05/22/23 06/02/23 baclofen 5 mg tablet 5 mg PO BID 07/11/23 07/11/23 buspirone 10 mg tablet mg 07/11/23 lorazepam 0.5 mg tablet 0.5 mg PO BID PRN Anxiety 07/11/23 Allergies Allergy/AdvReac Type Severity Reaction Status Date / Time erythromycin base Allergy Intermediate HIVES, Verified 07/11/23 14:34 SWELLING Sulfa (Sulfonamide Allergy Unknown Verified 07/11/23 14:34 Antibiotics) Review of Systems Review of Systems: All systems reviewed & are unremarkable except as noted in HPI and below PMFSH Past Medical History Medical History Arthritis Chronic neck pain Dementia Diarrhea Dizziness Emphysema/COPD Hair loss History of rectal polyps HTN (hypertension) IBS (irritable bowel syndrome) Light headedness Memory loss Nausea Shingles Skin cancer Urinary frequency Vertigo Vision abnormalities Wears glasses Surgical History Surgical History History of hip surgery Hx of cataract surgery Hx of dilation and curettage Family History Family History Sibling Family history of lung cancer Patient's brother is in good health Patient's brother is Mother Family history of malignant neoplasm Patient's mother is CHF (congestive heart failure) Father Family history of lung cancer Patient's father is Mother No problems noted. Social History Social History Social History: The patient lives in [place] with her of nearly 65 years. They have 5 children. Her daughter Chelsi Rouse is her healthcare power of divorce attorney, and the patient is a do not resuscitate. She is a lifelong nonsmoker. No alcohol or drug use. Smoking status: Never smoker Alcohol intake: never Substance use: never Substance use type: does not use Spiritual care concerns: No Agree to blood products: Yes Exam Narrative: General appearance: Well-developed, well-nourished Skin: Normal color Head: Normocephalic, nontraumatic Eyes: Clear conjunctiva ENT: Oropharynx normal, ears normal, nose normal Neck: Supple, nontender Chest and respiratory: Airway patent, no respiratory distress, no accessory muscle use Heart: Regular rate/rhythm Abdomen: Soft, nontender, no organomegaly, quiet bowel sounds Vascular: Normal peripheral pulses, normal capillary refill. Musculoskeletal: Normal range of motion, nontender back, patient able to move all extremities without limitation except patient showing slight discomfort with right hip movement. Patient was able to stand up and walk back and forth to the bathroom without account assistant. Neurologic: Alert and oriented oriented to her name and birthdate only
--- NOTE | 2023-07-31 18:30 | PC.NURSE ---
CALLED EMERGENCY CONTACT [facility] AT [phone]. HE AND ALL OTHER FAMILY ARE OUT OF TOWN. NO OTHER TRANSPORTATION IS AVAILABLE FOR THE PT. HE IS AWARE WE WILL CALL EMS FOR TRANSPORTATION.
--- NOTE | 2023-07-31 19:15 | PC.NURSE ---
This RN assumed care of pt from ASHLEY Gonzalez at this time. Pt in bed w bed alarm applied and call light within reach.
--- NOTE | 2023-07-31 20:40 | PC.NURSE ---
[facility] Pt being xfr w ED summary and dc packets.
== END 2023-07-31 20:43 ==
PROVIDERS: Emergency Provider Emergency Medicine; PCP Hospitalist
DX: S32.591A Other specified fracture of right pubis, initial encounter for closed fracture (principal); W18.39XA Other fall on same level, initial encounter; F03.90 Unspecified dementia, unspecified severity, without behavioral disturbance, psychotic disturbance, mood disturbance, and anxiety; I10 Essential (primary) hypertension; J43.9 Emphysema, unspecified
CPT/HCPCS: 70450; 72125; 73502; 99284

== ENCOUNTER 2023-08-07 16:21 | Emergency (ER) | payer MEDICARE, BC, SELFPAY ==
--- NOTE | ~2023-08-07 | CT_ITS ---
EXAMINATION: CT cervical spine wo con DATE: 08/07/2023 17:15 INDICATION: neck trauma TECHNIQUE: Computed tomography (CT) of the cervical spine was performed without intravenous contrast. Automated exposure control and iterative reconstruction technique were employed. The dose-length pro duct was 110.78 mGy-cm. COMPARISON: 07/31/2023. FINDINGS: Vertebral Body Alignment: Intact. Stable multilevel grade 1 listheses. Reversed lordosis centered at C4-5. Craniocervical and atlantoaxial alignment: Moderate degenerative change. Alignment intact. Osseous structures/fracture: No evidence of a lytic or blastic process in the visualized spine. No e vidence of acute fracture. Multilevel facet fusions. Stable mild anterior wedge deformity at C7 and T 2. Cervical soft tissues: The paraspinal soft tissues planes are maintained. Multiple left thyroid nodul es which require no additional workup at this time based on size less than 1.5 cm. Biapical pleural s carring Degenerative changes: Multilevel severe degenerative disc disease and facet arthropathy. No severe ce ntral canal or neural foraminal narrowing. IMPRESSION: No acute fracture or traumatic malalignment in the cervical spine. Reviewed, dictated and finalized at location K.
--- NOTE | ~2023-08-07 | CT_ITS ---
EXAMINATION: CT brain wo con DATE: 08/07/2023 17:07 INDICATION: head trauma . TECHNIQUE: Computed tomography (CT) of the head was performed without intravenous contrast. The mA wa s adjusted according to patient size. Iterative reconstruction technique was employed. The dose-lengt h product was 605.33 mGy-cm. COMPARISON: 07/31/2023. FINDINGS: No acute intracranial hemorrhage or extra-axial fluid collection. No hydrocephalus, mass, or herniation. No acute ischemic infarct. Unremarkable dural venous sinus attenuation. No acute osseous abnormality. The aerated spaces are clear. Moderate atrophy and chronic white matter change. Atherosclerotic intracranial calcification. Bilater al lens replacements. IMPRESSION: No acute intracranial process. Reviewed, dictated and finalized at location K.
--- NOTE | ~2023-08-07 | CT_ITS ---
EXAMINATION: CT chest abdomen pelvis wo con DATE: 08/07/2023 17:15 INDICATION: polytrauma . TECHNIQUE: Computed tomography (CT) of the chest, abdomen, and pelvis was performed with 100 mL Omnip aque-350 intravenous contrast. Automated exposure control and iterative reconstruction technique were employed. The dose-length product was 554.56 mGy-cm. COMPARISON: CT pelvis 05/22/2023; CT abdomen pelvis 01/26/2016. FINDINGS: CHEST: No thoracic aortic injury. Mild aortic ectasia. Moderate calcification. No mediastinal hematoma. Cardiomegaly. Coronary artery, mitral, and aortic valve calcifications. No pericardial effusion. No acute lung injury. Scattered scarring and senescent change. Interlobular septal thickening. No pneumothorax. Small bilateral pleural effusions. ABDOMEN/PELVIS: No solid organ injury. No evidence of bowel or mesenteric injury. Diverticulosis without diverticulitis. No free fluid or free air. No retroperitoneal hematoma. Vascular calcifications. Pelvic contents are atraumatic. Distended urinary bladder with mild wall thickening. 1.2 cm simple ap pearing left ovarian cyst. MUSCULOSKELETAL: No acute extraspinal fracture. Old sacral fractures. Old right obturator ring fractures, with mature callus and minimal osseous bridging. Uncomplicated left femoral neck fixation hardware. Stable mild anterior wedge deformity at T2. Mild anterior wedge deformity at T12, with posterior nixon ex involvement, no significant retropulsion. Superior endplate fracture at L2, with posterior cortex involvement and mild height loss, no significant retropulsion. Stable grade 1 anterolisthesis at L4-5 , likely on a degenerative basis. IMPRESSION: Mild burst fractures at T12 and L2 with mild height loss, no recent comparison available, correlate w ith acute pain/tenderness. Otherwise, no acute or potentially acute process detected in the chest, abdomen, or pelvis. Mild interstitial pulmonary edema. Small bilateral pleural effusions. Possible cystitis. Reviewed, dictated and finalized at location K. IMPRESSION: Mild burst fractures at T12 and L2 with mild height loss, no recent comparison available, correlate with acute pain/tenderness. Otherwise, no acute or potentially acute process detected in the chest, abdomen , or pelvis. Mild interstitial pulmonary edema. Small bilateral pleural effusions. Possible cystitis.
[2023-08-07 16:22] VITALS: BP 142/86; PULSE 75; RESP 16; TEMP 36.8; O2SAT 98
--- NOTE | 2023-08-07 16:36 | ED.FALL ---
HPI - Fall General Chief Complaint: Fall Stated Complaint: fall Time Seen by Provider: 08/07/23 16:25 History of Present Illness HPI Narrative: Patient is an 88-year-old female here after a fall. Current complaining of some upper back pain. she states that she was walking and tripped and fell to the ground. She denies eating her head or loss of consciousness. She denies any upper lower extremity pain. She notes she typically walks without any walking aids. She is alert and oriented to self at baseline so history is limited. Related Data Home Medications Medication Instructions Recorded Confirmed amlodipine 5 mg tablet 5 mg PO DAILY 01/19/20 06/02/23 quetiapine 25 mg tablet 50 mg PO BID 03/19/20 06/02/23 fesoterodine 4 mg tablet,extended 4 mg PO DAILY 05/22/23 06/02/23 release 24 hr fluoxetine 10 mg capsule 10 mg PO DAILY 05/22/23 06/02/23 fluoxetine 20 mg capsule 20 mg PO DAILY 05/22/23 06/02/23 mirtazapine 30 mg tablet 15 mg PO DAILY 05/22/23 06/02/23 trazodone 50 mg tablet 50 mg PO HS 05/22/23 06/02/23 trimethoprim 100 mg tablet 100 mg PO DAILY 05/22/23 06/02/23 baclofen 5 mg tablet 5 mg PO BID 07/11/23 07/11/23 buspirone 10 mg tablet mg 07/11/23 lorazepam 0.5 mg tablet 0.5 mg PO BID PRN Anxiety 07/11/23 Allergies Allergy/AdvReac Type Severity Reaction Status Date / Time erythromycin base Allergy Intermediate HIVES, Verified 07/11/23 14:34 SWELLING Sulfa (Sulfonamide Allergy Unknown Verified 07/11/23 14:34 Antibiotics) Review of Systems Review of Systems: CONSTITUTIONAL: Denies fever, chills EYES: Denies visual changes CARDIOVASCULAR: Denies chest pain RESPIRATORY: Denies cough GASTROINTESTINAL: Denies abdominal pain MUSCULOSKELETAL: back pain, denies joint pain, or myalgia. NEUROLOGIC: Denies headache, numbness, or weakness. [facility] Past Medical History Medical History Arthritis Chronic neck pain Dementia Diarrhea Dizziness Emphysema/COPD Hair loss History of rectal polyps HTN (hypertension) IBS (irritable bowel syndrome) Light headedness Memory loss Nausea Shingles Skin cancer Urinary frequency Vertigo Vision abnormalities Wears glasses Surgical History Surgical History History of hip surgery Hx of cataract surgery Hx of dilation and curettage Family History Family History Sibling Family history of lung cancer Patient's brother is in good health Patient's brother is Mother Family history of malignant neoplasm Patient's mother is CHF (congestive heart failure) Father Family history of lung cancer Patient's father is Mother No problems noted. Social History Social History Social History: The patient lives in [place] with her of nearly 65 years. They have 5 children. Her daughter Chelsi Rouse is her healthcare power of bat boy/girl, and the patient is a do not resuscitate. She is a lifelong nonsmoker. No alcohol or drug use. Smoking status: Never smoker Alcohol intake: never Substance use: never Substance use type: does not use Spiritual care concerns: No Agree to blood products: Yes Exam Narrative: GENERAL: Well-appearing, well-nourished, and in no acute distress. HEAD: Normocephalic, atraumatic. EYES: PERRLA and EOMI. ENT: Nares clear. Mucous membranes moist. NECK: Supple. No c-spine tenderness CHEST: Clear to auscultation. No respiratory distress. No chest wall tenderness. HEART: Regular rate and rhythm. Normal peripheral pulses. ABDOMEN: Soft, nontender, nondistended. EXTREMITIES: Normal range of motion. No upper or lower extremity tenderness, no traumatic injuries appreciated. Midline t-spine tenderness appreciated, no stepoffs, no midline lumbar
--- NOTE | 2023-08-07 17:22 | ECG_ITS ---
Measurements Intervals [place] Rate: 65 P: 70 GA: 157 QRS: 48 QRSD: 122 T: 51 QT: 462 QTc: 483 Interpretive Statements SINUS RHYTHM RIGHT BUNDLE BRANCH BLOCK BASELINE ARTIFACT- I, III, AVL ABNORMAL ECG COMPARED TO ECG 07/11/2023 14:26:32 NO SIGNIFICANT CHANGES Electronically Signed On 08-07-2023 20:36:42 CDT by Scott Brandt D.O.
[2023-08-07 17:44] LABS: Add Urine Microscopic? YES; Appearance Urine Clear (Clear); Bacteria Urine None Seen /hpf; Bilirubin Urine Negative (Negative); Blood Urine Trace (Negative); Color Urine Yellow (Yellow); Glucose Urine UA Negative (Negative); Ketones Urine Negative (Negative); Leukocyte Esterase Ur Negative LEU/UL (Negative); Nitrate Urine Negative (Negative); Non Pathogenic Casts 0-2; Protein Urine Negative (Negative); Specific Grav Ur 1.005 (1.001-1.035); Squamous Epithelial Cell Urine None seen /hpf (Few); Urobilinogen Urine 0.2 mg/dL (<2.0); WBC Urine 0-5 /hpf; pH Urine 7.5 (5.0-9.0)
--- NOTE | 2023-08-07 19:26 | PC.NURSE ---
This RN called [facility] to give report but no answer.
[2023-08-07 19:31] VITALS: BP 125/80; PULSE 62; O2SAT 98
[2023-08-07 20:14] VITALS: BP 112/73; PULSE 68; RESP 18; O2SAT 95
== END 2023-08-07 20:11 ==
PROVIDERS: Emergency Provider Student in an Organized Health Care Education/Training Program
DX: S29.9XXA Unspecified injury of thorax, initial encounter (principal); F03.90 Unspecified dementia, unspecified severity, without behavioral disturbance, psychotic disturbance, mood disturbance, and anxiety; J43.9 Emphysema, unspecified; I10 Essential (primary) hypertension; K58.9 Irritable bowel syndrome, unspecified; M19.90 Unspecified osteoarthritis, unspecified site; Z66 Do not resuscitate; Z87.19 Personal history of other diseases of the digestive system; Z85.828 Personal history of other malignant neoplasm of skin; Z98.49 Cataract extraction status, unspecified eye; I45.10 Unspecified right bundle-branch block; W01.0XXA Fall on same level from slipping, tripping and stumbling without subsequent striking against object, initial encounter
CPT/HCPCS: 70450; 71250; 72125; 74176; 81001; 93005; 99284

== ENCOUNTER 2023-09-27 05:37 | Emergency (ER) | payer MEDICARE, BC, SELFPAY ==
[2023-09-27] VITALS (39 sets, daily range): BP systolic 135–166; BP diastolic 68–98; PULSE 63–87; RESP 13–31; TEMP 36.6; O2SAT 94–100
--- NOTE | ~2023-09-27 | CT_ITS ---
EXAMINATION: CT lumbar spine wo con DATE: 09/27/2023 08:41 INDICATION: Low back injury. Fall. TECHNIQUE: Computed tomography (CT) of the lumbar spine was performed without intravenous contrast. A utomated exposure control and iterative reconstruction technique were employed. The dose-length produ ct was 391.75 mGy-cm. COMPARISON: CT abdomen and pelvis 08/07/2023 FINDINGS: There are small pleural effusions. There is calcified atherosclerosis of the aorta and many of the other arteries. There are healing insufficiency fractures of the bilateral sacral ala, stable from 08/07/2023. There is 4 mm anterolisthesis of L4 on L5. There is a chronic burst fracture of T12 with 2/5 loss of height. There is a compression fracture of L2 with 1/5 loss of height, stable from . There is a burst fracture of L3 with 1/5 loss of height and retropulsion of bone 3 mm into central spinal canal, new from 08/07/2023. There is mildly decreased disc height at L3-L4 and moderate ly decreased disc height at L4-L5. The following disc levels are specifically discussed: L1-L2: The disc does not extend beyond the endplate margin. There is severe bilateral facet joint ost eoarthritis. There is no neural foraminal stenosis. There is no central canal stenosis. L2-L3: The disc is bulging. There is severe bilateral facet joint osteoarthritis. There is mild bilat eral neural foraminal stenosis. There is mild central canal stenosis. L3-L4: The disc is bulging. There is severe bilateral facet joint osteoarthritis. There is mild bilat eral neural foraminal stenosis. There is no central canal stenosis. L4-L5: The disc is bulging. There is severe bilateral facet joint osteoarthritis. There is mild bilat eral neural foraminal stenosis. There is mild central canal stenosis. L5-S1: The disc does not extend beyond the endplate margin. There is severe bilateral facet joint ost eoarthritis. There is mild bilateral neural foraminal stenosis. There is no central canal stenosis. IMPRESSION: 1. L3 burst fracture, new from 08/07/2023. 2. Healing bilateral sacral insufficiency fractures and healing L2 compression fracture, stable from 08/07/2023. 3. Moderate lumbar spondylosis. 4. Small pleural effusions. Reviewed, dictated and finalized at location A. [employer] PRIVACY CONSULTANT
--- NOTE | ~2023-09-27 | XR_ITS ---
AP view of the pelvis Clinical history: Pain COMPARISON: 07/31/2023 Findings: No acute fracture or dislocation is seen. Subacute fracture deformities of the right superi or and inferior pubic rami are present, with partial interval healing since prior exam. Stable orthop edic screws within the left femoral neck. Mild degenerative change of the bilateral hip joints is sim ilar to prior exam. Soft tissues are unremarkable. Impression: Subacute fractures of the right superior and inferior pubic rami, with partial interval healing as co mpared to prior exam. No acute fracture evident. Stable orthopedic screws and left femoral neck. Mild degenerative change of both hip joints. Reviewed, dictated and finalized at location . PRODUCTION COOK Impression: Subacute fractures of the right superior and inferior pubic rami, with partial interval healing as compared to prior exam. No acute fracture evident. Stable orthopedic screws and left femoral neck. Mild degenerative change of both hip joints.
--- NOTE | ~2023-09-27 | XR_ITS ---
Portable chest x-ray Comparison: 09/05/2022 Clinical History: Status post fall Findings: Stable calcified right upper lobe granuloma noted. Questionable hazy retrocardiac airspace disease. No pleural effusion or pneumothorax identified. Cardiomediastinal silhouette is stable. Nacho andrea and soft tissues are unremarkable. Impression: Questionable retrocardiac airspace disease. Correlate for atelectasis or pneumonia. Reviewed, dictated and finalized at [facility]. INGS INSPECTOR Impression: Questionable retrocardiac airspace disease. Correlate for atelectasis or pneumo tee.
--- NOTE | 2023-09-27 07:50 | ECG_ITS ---
Measurements Intervals Confluence Rate: 68 P: 61 ID: [id number] QRS: 88 QRSD: 124 T: 62 QT: 454 QTc: 484 Interpretive Statements SINUS RHYTHM ATRIAL AND VENTRICULAR PREMATURE COMPLEXES RIGHT BUNDLE BRANCH BLOCK BASELINE WANDER- II, III, V4-V6 ABNORMAL ECG COMPARED TO ECG 08/07/2023 17:28:53 NO SIGNIFICANT CHANGES Electronically Signed On 09-27-2023 9:42:53 DIRECTOR LIFE SCIENCES by Scott Brandt D.O.
--- NOTE | 2023-09-27 07:57 | PC.NURSE ---
pt continues to deny pain or complaints. changed into gown. resting comfortably on stretcher. waiting edp evaluation
--- NOTE | 2023-09-27 08:16 | ED.FALL ---
HPI - Fall General Chief Complaint: Fall Stated Complaint: FALLS, AMS Time Seen by Provider: 09/27/23 07:05 Source: patient Mode of arrival: EMS Limitations: dementia History of Present Illness HPI Narrative: Patient is an 88-year-old female presents to the emergency department via EMS for a fall. Patient is from [facility] and is typically alert and oriented x1. Patient reportedly had a fall yesterday. Unknown context of the fall. Patient denies any pain anywhere. Patient denies chest pain, shortness of breath, abdominal pain, nausea, vomiting, use of blood thinners, new or changed medications, confusion, numbness, weakness, melena, hematochezia, dysuria, hematuria, urinary frequency, urinary urgency, headache. Related Data Home Medications Medication Instructions Recorded Confirmed amlodipine 5 mg tablet 5 mg PO DAILY 01/19/20 06/02/23 quetiapine 25 mg tablet 50 mg PO BID 03/19/20 06/02/23 fesoterodine 4 mg tablet,extended 4 mg PO DAILY 05/22/23 06/02/23 release 24 hr fluoxetine 10 mg capsule 10 mg PO DAILY 05/22/23 06/02/23 fluoxetine 20 mg capsule 20 mg PO DAILY 05/22/23 06/02/23 mirtazapine 30 mg tablet 15 mg PO DAILY 05/22/23 06/02/23 trazodone 50 mg tablet 50 mg PO HS 05/22/23 06/02/23 trimethoprim 100 mg tablet 100 mg PO DAILY 05/22/23 06/02/23 baclofen 5 mg tablet 5 mg PO BID 07/11/23 07/11/23 buspirone 10 mg tablet mg 07/11/23 lorazepam 0.5 mg tablet 0.5 mg PO BID PRN Anxiety 07/11/23 Allergies Allergy/AdvReac Type Severity Reaction Status Date / Time erythromycin base Allergy Intermediate HIVES, Verified 07/11/23 14:34 SWELLING Sulfa (Sulfonamide Allergy Unknown Verified 07/11/23 14:34 Antibiotics) Review of Systems Review of Systems: A 10 system review of systems was completed on the patient and is negative except for what is stated in the HPI. Nursing and ancillary documentation was reviewed. [facility] Past Medical History Medical History Arthritis Chronic neck pain Dementia Diarrhea Dizziness Emphysema/COPD Hair loss History of rectal polyps HTN (hypertension) IBS (irritable bowel syndrome) Light headedness Memory loss Nausea Shingles Skin cancer Urinary frequency Vertigo Vision abnormalities Wears glasses Surgical History Surgical History History of hip surgery Hx of cataract surgery Hx of dilation and curettage Family History Family History Sibling Family history of lung cancer Patient's brother is in good health Patient's brother is Mother Family history of malignant neoplasm Patient's mother is CHF (congestive heart failure) Father Family history of lung cancer Patient's father is Mother No problems noted. Social History Social History Social History: The patient lives in [place] with her of nearly 65 years. They have 5 children. Her daughter Chelsi Rouse is her healthcare power of organic gardening teacher, and the patient is a do not resuscitate. She is a lifelong nonsmoker. No alcohol or drug use. Smoking status: Never smoker Alcohol intake: never Substance use: never Substance use type: does not use Spiritual care concerns: No Agree to blood products: Yes Comments At time of signature, I have reviewed and agree with nursing past medical, surgical, social and family history unless otherwise noted. Please see the nursing chart for further information. There is no relevant family history pertinent to the presenting complaint. Exam Narrative: CONST: No acute distress. Well nourished. HENMT: Head is normocephalic and atraumatic. Tacky mucous membranes. No posterior oropharynx erythema. EYES: No conjunctival icterus, injection, or pallor. PERRL.
[2023-09-27] MEDS: ACETAMINOPHEN 500 MG TABLET 1000 MG PO (08:31)
[2023-09-27] MEDS: SODIUM CHLORIDE 0.9% IV 500 ML 999 ML IV CONT (08:31)
[2023-09-27 08:38] LABS: Basophils Percent Auto 0.2 % (0.2-1.2); Eosinophils Percent Auto 0.4 % (0-4.4); Hematocrit 38.2 % (37.0-47.0); Hemoglobin 11.6 g/dL (12.0-15.0); Immature Granulocyte Absolute 0.03 K/mm3 (0.00-0.031); Immature Granulocyte Percent A 0.4 % (0-0.5); Lymphocytes Absolute Auto 0.86 K/mm3 (0.9-3.2); Lymphocytes Percent Auto 10.7 % (18.3-44.2); Mean Corpuscular HGB Conc 30.4 g/dl (32-36); Mean Corpuscular Hemoglobin 28.2 pg (26-34); Mean Corpuscular Volume 92.7 fl (80-100); Mean Platelet Volume 10.1 fl (7.4-10.4); Monocytes Absolute Auto 0.6 K/mm3 (0.1-0.6); Monocytes Percent Auto 7.4 % (2.6-8.5); Neutrophils Absolute Auto 6.5 K/mm3 (1.3-6.7); Neutrophils Percent Auto 80.9 % (45.5-73.1); Platelet Count Result 194 k/mm3 (150-375); Red Blood Count 4.12 M/mm3 (4.2-5.4); Red Cell Distribution Width 16.5 % (11.5-14.5); White Blood Count 8.1 K/mm3 (4.5-10.0)
[2023-09-27 08:48] LABS: Partial Thromboplastin Time 24.4 SECONDS (22.3-36.8); Prothrombin Time 13.5 Seconds (11.1-14.7)
[2023-09-27 08:49] LABS: Lactic Acid Reflex 1.4 mmol/L (0.7-2.0)
[2023-09-27 08:51] LABS: Alanine Aminotransferase 18 U/L (6-35); Albumin Level 3.6 g/dL (3.5-5.1); Alkaline Phosphatase 169 U/L (38-126); Anion Gap 8 mmol/L (8-16); Aspartate Amino Transferase 27 U/L (14-36); Bilirubin,Total 0.4 mg/dL (0.2-1.3); Blood Urea Nitrogen 18 mg/dL (7-17); Calcium 8.5 mg/dL (8.4-10.2); Carbon Dioxide 28 mmol/L (22-30); Chloride 104 mmol/L (98-107); Estimated CRCL calculation 56 ml/min; Estimated Glomerular Filt Rate > 60; Glucose 116 mg/dL (65-110); Magnesium 2.2 mg/dL (1.6-2.3); Potassium 3.6 mmol/L (3.4-5.0); Sodium 140 mmol/L (137-145)
[2023-09-27 09:00] LABS: Troponin I < 0.012 ng/mL (0.000-0.034)
[2023-09-27 09:06] LABS: Appearance Urine Cloudy (Clear); Bacteria Urine 4+ /hpf; Bilirubin Urine Negative (Negative); Blood Urine 2+ (Negative); Color Urine Yellow (Yellow); Glucose Urine UA Negative (Negative); Ketones Urine Negative (Negative); Leukocyte Esterase Ur 2+ LEU/UL (Negative); Nitrate Urine Positive (Negative); Non Pathogenic Casts 0-2; Protein Urine Negative (Negative); Specific Grav Ur 1.018 (1.001-1.035); Squamous Epithelial Cell Urine None seen /hpf (Few); Urobilinogen Urine 0.2 mg/dL (<2.0); WBC Urine >100 /hpf
--- NOTE | 2023-09-27 09:30 | PC.NURSE ---
pt pulled out iv line. took blood pressure cuff. pt pulled bracelet off. pt requesting me to call her to come get her. spoke with daughter on the phone. states this is normal for the pt. states her is in another correction and she hasnt seen him in over a year. states if pt is discharged she will need to go back to facility via ambulance. requests a call back regarding a final disposition henrique [phone]
[2023-09-27 09:42] LABS: Add Urine Microscopic? YES
--- NOTE | 2023-09-27 12:34 | PC.NURSE ---
called ASHLEY Forman at [facility] to give report about pt. pt will be transferred back once we have obtained the back brace for pt. no further orders at this time
== END 2023-09-27 13:28 ==
PROVIDERS: Emergency Provider Student in an Organized Health Care Education/Training Program
DX: N39.0 Urinary tract infection, site not specified (principal); S32.001A Stable burst fracture of unspecified lumbar vertebra, initial encounter for closed fracture; J43.9 Emphysema, unspecified; I10 Essential (primary) hypertension; F03.90 Unspecified dementia, unspecified severity, without behavioral disturbance, psychotic disturbance, mood disturbance, and anxiety; W19.XXXA Unspecified fall, initial encounter
CPT/HCPCS: 36415; 71045; 72131; 72170; 80053; 81001; 83605; 83735; 84484; 85025; 85610; 85730; 87077; 87086; 87186; 93005; 96361; 96365; 99284; A9270; J0696; J7040

== ENCOUNTER 2023-09-28 08:02 | Emergency (ER) | payer MEDICARE, BC, SELFPAY ==
--- NOTE | ~2023-09-28 | CT_ITS ---
EXAMINATION: CT brain wo con DATE: 09/28/2023 08:32 INDICATION: Weakness. Head injury. TECHNIQUE: Computed tomography (CT) of the head was performed without intravenous contrast. The mA wa s adjusted according to patient size. Iterative reconstruction technique was employed. The dose-lengt h product was 605.33 mGy-cm. COMPARISON: Head CT 08/07/2023 FINDINGS: There are scattered areas of low attenuation in the cerebral white matter. There is no intr acranial hemorrhage, acute infarction, or abnormal intracranial mass lesion. The ventricles are radha l in size. There are likely changes of ocular lens replacement surgeries. There is mild mucosal thick ening in the paranasal sinuses. The mastoid air cells are normal. IMPRESSION: 1. Stable extensive nonspecific cerebral white matter disease, which likely represents chronic small vessel ischemic disease. Reviewed, dictated and finalized at location A. NSTITCH ZIPPER SETTER IMPRESSION: 1. Stable extensive nonspecific cerebral white matter disease, which likely rep resents chronic small vessel ischemic disease.
[2023-09-28 08:04] VITALS: BP 156/76; PULSE 77; RESP 14; TEMP 36.4; O2SAT 95
--- NOTE | 2023-09-28 09:09 | ED.GENADULT ---
HPI - General Adult General Chief complaint: Nausea/Vomiting/Diarrhea Stated complaint: fal 2 days ago - N/V, lethargy Time Seen by Provider: 09/28/23 08:12 History of Present Illness HPI narrative: Patient is an 88-year-old female who presents ER due to nausea and vomiting. Patient had a fall couple days ago. She was seen in the ER yesterday and had labs/imaging performed. Unfortunately CT of the head was not performed in the shelter was concerned that she could have a head bleed and so they sent her back. Patient has no evidence of trauma to her head. She is oriented x1 at baseline. She is not on any blood thinners. Related Data Home Medications Medication Instructions Recorded Confirmed amlodipine 5 mg tablet 5 mg PO DAILY 01/19/20 06/02/23 quetiapine 25 mg tablet 50 mg PO BID 03/19/20 06/02/23 fesoterodine 4 mg tablet,extended 4 mg PO DAILY 05/22/23 06/02/23 release 24 hr fluoxetine 10 mg capsule 10 mg PO DAILY 05/22/23 06/02/23 fluoxetine 20 mg capsule 20 mg PO DAILY 05/22/23 06/02/23 mirtazapine 30 mg tablet 15 mg PO DAILY 05/22/23 06/02/23 trazodone 50 mg tablet 50 mg PO HS 05/22/23 06/02/23 trimethoprim 100 mg tablet 100 mg PO DAILY 05/22/23 06/02/23 baclofen 5 mg tablet 5 mg PO BID 07/11/23 07/11/23 buspirone 10 mg tablet mg 07/11/23 lorazepam 0.5 mg tablet 0.5 mg PO BID PRN Anxiety 07/11/23 Allergies Allergy/AdvReac Type Severity Reaction Status Date / Time erythromycin base Allergy Intermediate HIVES, Verified 09/28/23 08:13 SWELLING Sulfa (Sulfonamide Allergy Unknown Verified 09/28/23 08:13 Antibiotics) Review of Systems Review of Systems: ROS unobtainable: Yes unobtainable due to mental status PMFSH Past Medical History Medical History Arthritis Chronic neck pain Dementia Diarrhea Dizziness Emphysema/COPD Hair loss History of rectal polyps HTN (hypertension) IBS (irritable bowel syndrome) Light headedness Memory loss Nausea Shingles Skin cancer Urinary frequency Vertigo Vision abnormalities Wears glasses Surgical History Surgical History History of hip surgery Hx of cataract surgery Hx of dilation and curettage Family History Family History Sibling Family history of lung cancer Patient's brother is in good health Patient's brother is Mother Family history of malignant neoplasm Patient's mother is CHF (congestive heart failure) Father Family history of lung cancer Patient's father is Mother No problems noted. Social History Social History Social History: The patient lives in [place] with her of nearly 65 years. They have 5 children. Her daughter Chelsi Rouse is her healthcare power of traffic law attorney, and the patient is a do not resuscitate. She is a lifelong nonsmoker. No alcohol or drug use. Smoking status: Never smoker Alcohol intake: never Substance use: never Substance use type: does not use Spiritual care concerns: No Agree to blood products: Yes Exam Narrative: GENERAL: Well-appearing, well-nourished, and in no acute distress. HEAD: Normocephalic, atraumatic. EYES: PERRL and EOMI. ENT: Mucous membranes moist. NECK: Supple. CHEST: Clear to auscultation. No respiratory distress. HEART: Regular rate and rhythm. Normal peripheral pulses. EXTREMITIES: Normal range of motion. No edema. NEURO: Alert and oriented x1. PSYCH: Normal mood and affect. Course Course Emergency Course: Previous visit reviewed. Imaging negative today. Urine culture has not yet returned but based off of previous culture results patient is on appropriate antibiotics. Discharge back to facility. Vital Signs Vital signs: Vital Signs Temperature 97.6 F 11/
[2023-09-28 09:47] VITALS: BP 144/79; PULSE 81; RESP 15; O2SAT 100
[2023-09-28 10:09] VITALS: BP 137/78; PULSE 62; RESP 15; O2SAT 100
== END 2023-09-28 10:28 ==
PROVIDERS: Emergency Provider Emergency Medicine
DX: R11.0 Nausea (principal); M19.90 Unspecified osteoarthritis, unspecified site; G89.29 Other chronic pain; F03.90 Unspecified dementia, unspecified severity, without behavioral disturbance, psychotic disturbance, mood disturbance, and anxiety; J44.9 Chronic obstructive pulmonary disease, unspecified; I10 Essential (primary) hypertension
CPT/HCPCS: 70450; 99284

== ENCOUNTER 2023-11-17 18:49 | Emergency (ER) | payer MEDICARE, BC, SELFPAY ==
--- NOTE | ~2023-11-17 | XR_ITS ---
EXAMINATION: XR chest 1V DATE: 11/17/2023 19:45 INDICATION: Chest injury. TECHNIQUE: A single frontal view of the chest was obtained. COMPARISON: Chest single view 09/27/2023, chest CT 08/07/2023 FINDINGS: Calcified pulmonary nodules and calcified hilar and mediastinal lymph nodes are consistent with old granulomatous disease. There is an interstitial pattern in the lungs with an upper lung pred ominance. No pleural effusion or pneumothorax. The heart size is normal. IMPRESSION: 1. Interstitial pattern in the lungs, consistent with mild pulmonary edema and/or chronic lung diseas e. Reviewed, dictated and finalized at location E. KER HAND IMPRESSION: 1. Interstitial pattern in the lungs, consistent with mild pulmonary edema and/ or chronic lung disease.
--- NOTE | ~2023-11-17 | CT_ITS ---
EXAMINATION: CT brain wo con DATE: 11/17/2023 19:58 INDICATION: Head injury. TECHNIQUE: Computed tomography (CT) of the head was performed without intravenous contrast. The mA wa s adjusted according to patient size. Iterative reconstruction technique was employed. The dose-lengt h product was 908.00 mGy-cm. COMPARISON: Head CT 09/28/2023 FINDINGS: There are scattered areas of low attenuation in the cerebral white matter. There is no intr acranial hemorrhage, acute infarction, or abnormal intracranial mass lesion. The ventricles are radha l in size. There is a right frontal lateral scalp hematoma. The paranasal sinuses are clear. The mast oid air cells are normal. There are likely changes of ocular lens replacement surgeries. IMPRESSION: 1. Stable extensive nonspecific cerebral white matter disease, which likely represents chronic small vessel ischemic disease. Reviewed, dictated and finalized at location E. NEERING DIRECTOR IMPRESSION: 1. Stable extensive nonspecific cerebral white matter disease, which likely rep resents chronic small vessel ischemic disease.
--- NOTE | ~2023-11-17 | CT_ITS ---
EXAMINATION: CT facial & cervical spine wo DATE: 11/17/2023 19:58 INDICATION: Head injury. TECHNIQUE: Computed tomography (CT) of the maxillofacial region and cervical spine was performed with out intravenous contrast. Automated exposure control and iterative reconstruction technique were empl oyed. The dose-length product was 112.55 mGy-cm. COMPARISON: Cervical spine CT 08/07/2023 FINDINGS: MAXILLOFACIAL CT: There are likely changes of ocular lens replacement surgeries. There is rightward deviation of the na deacon septum. No fracture. The paranasal sinuses are clear. CERVICAL SPINE CT: There is mild scarring at the lung apices. There is 2 mm retrolisthesis of C5 on C6. There is mild ch ronic anterior wedging of C7 and T2. There is moderately decreased disc height at C4-C5 and severely decreased disc height at C5-C6. The following disc levels are specifically discussed: C2-C3: There is mild bilateral uncovertebral joint osteoarthritis. There is severe bilateral facet justin int osteoarthritis. There is mild bilateral neural foraminal stenosis. There is no central canal sten osis. C3-C4: There is ankylosis of the uncovertebral joints with mild hypertrophy. There is ankylosis of th e facet joints with moderate hypertrophy. There is mild bilateral neural foraminal stenosis. There is mild central canal stenosis. C4-C5: There is ankylosis of the uncovertebral joints with mild hypertrophy. There is ankylosis of th e facet joints with moderate right hypertrophy. There is mild bilateral neural foraminal stenosis. Th ere is mild central canal stenosis. C5-C6: There is severe bilateral uncovertebral joint osteoarthritis. There is severe right and modera te left facet joint osteoarthritis. There is moderate right and mild left neural foraminal stenosis. There is mild central canal stenosis. C6-C7: There is no uncovertebral joint osteoarthritis. There is severe bilateral facet joint osteoart hritis. There is mild bilateral neural foraminal stenosis. There is mild bilateral central canal sten osis. C7-T1: There is no uncovertebral joint osteoarthritis. There is severe bilateral facet joint osteoart hritis. There is mild bilateral neural foraminal stenosis. There is no central canal stenosis. IMPRESSION: 1. No acute fracture. 2. Severe cervical spondylosis. Reviewed, dictated and finalized at location E. ON IMPAIRED TEACHER
--- NOTE | ~2023-11-17 | XR_ITS ---
EXAMINATION: XR pelvis 1-2V DATE: 11/17/2023 19:45 INDICATION: Pelvis injury. TECHNIQUE: An anteroposterior view of the pelvis was obtained. COMPARISON: Pelvis radiograph 09/27/2023 FINDINGS: There are old fractures of right superior and inferior pubic rami. There is an old fracture of left femoral neck with screw fixation. There is moderate osteoarthritis of the hips. There is sev ere lumbar spondylosis. IMPRESSION: 1. Moderate osteoarthritis of the hips. Reviewed, dictated and finalized at location E. OL SECRETARY
[2023-11-17 18:41] VITALS: BP 156/86; PULSE 82; RESP 15; TEMP 36.6; O2SAT 100
[2023-11-17] MEDS: ACETAMINOPHEN 500 MG TABLET 1000 MG PO (20:00)
[2023-11-17 20:12] VITALS: BP 151/80; PULSE 82; RESP 14; O2SAT 99
--- NOTE | 2023-11-17 20:15 | ED.FALL ---
HPI - Fall General Chief Complaint: Fall Stated Complaint: GLF, R TEMPORAL LAC Time Seen by Provider: 11/17/23 19:07 Source: patient Limitations: dementia History of Present Illness HPI Narrative: Patient is an 88-year-old female presents to the emergency department via EMS for a fall.? Patient is from [facility] and is typically alert and oriented x1.? Patient had a unwitnessed ground level fall with a resultant hematoma to the right knee frontoparietal region with a scant amount of blood loss that has since stopped bleeding and was brought in with a cervical collar in place. Patient does not recall the fall. Patient states that she is only having some mild discomfort where she has the bump on her head and otherwise feels well. Patient denies chest pain, shortness of breath, cough, fever, urinary discomfort, diarrhea, urinary incontinence, stool incontinence, abdominal pain, nausea, vomiting, back pain, neck pain, numbness, weakness, use of blood thinners, new or change medications, bloody bowel movements, vision changes. Related Data Home Medications Medication Instructions Recorded Confirmed amlodipine 5 mg tablet 5 mg PO DAILY 01/19/20 06/02/23 quetiapine 25 mg tablet 50 mg PO BID 03/19/20 06/02/23 fesoterodine 4 mg tablet,extended 4 mg PO DAILY 05/22/23 06/02/23 release 24 hr fluoxetine 10 mg capsule 10 mg PO DAILY 05/22/23 06/02/23 fluoxetine 20 mg capsule 20 mg PO DAILY 05/22/23 06/02/23 mirtazapine 30 mg tablet 15 mg PO DAILY 05/22/23 06/02/23 trazodone 50 mg tablet 50 mg PO HS 05/22/23 06/02/23 trimethoprim 100 mg tablet 100 mg PO DAILY 05/22/23 06/02/23 baclofen 5 mg tablet 5 mg PO BID 07/11/23 07/11/23 buspirone 10 mg tablet mg 07/11/23 lorazepam 0.5 mg tablet 0.5 mg PO BID PRN Anxiety 07/11/23 Allergies Allergy/AdvReac Type Severity Reaction Status Date / Time erythromycin base Allergy Intermediate HIVES, Verified 09/28/23 08:13 SWELLING Sulfa (Sulfonamide Allergy Unknown Verified 09/28/23 08:13 Antibiotics) Review of Systems Review of Systems: A 10 system review of systems was completed on the patient and is negative except for what is stated in the HPI. Nursing and ancillary documentation was reviewed. [facility] Past Medical History Medical History Arthritis Chronic neck pain Dementia Diarrhea Dizziness Emphysema/COPD Hair loss History of rectal polyps HTN (hypertension) IBS (irritable bowel syndrome) Light headedness Memory loss Nausea Shingles Skin cancer Urinary frequency Vertigo Vision abnormalities Wears glasses Surgical History Surgical History History of hip surgery Hx of cataract surgery Hx of dilation and curettage Family History Family History Sibling Family history of lung cancer Patient's brother is in good health Patient's brother is Mother Family history of malignant neoplasm Patient's mother is CHF (congestive heart failure) Father Family history of lung cancer Patient's father is Mother No problems noted. Social History Social History Social History: The patient lives in [place] with her of nearly 65 years. They have 5 children. Her daughter Chelsi Rouse is her healthcare power of commonwealth attorney, and the patient is a do not resuscitate. She is a lifelong nonsmoker. No alcohol or drug use. Smoking status: Never smoker Alcohol intake: never Substance use: never Substance use type: does not use Spiritual care concerns: No Agree to blood products: Yes Comments At time of signature, I have reviewed and agree with nursing past medical, surgical, social and family history unless otherwise noted. Please see the nursing chart for further inform
--- NOTE | 2023-11-17 20:18 | ECG_ITS ---
Measurements Intervals Aubrey Rate: 85 P: 73 ME: 144 QRS: 83 QRSD: 132 T: 63 QT: 390 QTc: 464 Interpretive Statements SINUS RHYTHM WITH SINUS ARRHYTHMIA ATRIAL PREMATURE COMPLEXES RIGHT BUNDLE BRANCH BLOCK BASELINE ARTIFACT- I, II, AVR, AVL, AVF, V1-V3 ABNORMAL ECG COMPARED TO ECG 09/27/2023 07:54:56 SINUS ARRHYTHMIA NOW PRESENT Electronically Signed On 11-18-2023 6:38:51 DIRECTOR COMMUNICATIONS by Scott Brandt D.O.
[2023-11-17 21:17] LABS: Appearance Urine Clear (Clear); Bacteria Urine None Seen /hpf; Bilirubin Urine Negative (Negative); Blood Urine Trace (Negative); Color Urine Yellow (Yellow); Glucose Urine UA Negative (Negative); Ketones Urine Negative (Negative); Leukocyte Esterase Ur Negative LEU/UL (Negative); Nitrate Urine Negative (Negative); Non Pathogenic Casts 0-2; Protein Urine Negative (Negative); Specific Grav Ur 1.012 (1.001-1.035); Squamous Epithelial Cell Urine None seen /hpf (Few); WBC Urine 0-5 /hpf; pH Urine 7.5 (5.0-9.0)
[2023-11-17 21:26] LABS: Add Urine Microscopic? YES
[2023-11-18 02:00] VITALS: BP 146/74; PULSE 80; RESP 15; O2SAT 100
== END 2023-11-18 02:54 ==
PROVIDERS: Emergency Provider Student in an Organized Health Care Education/Training Program
DX: S00.03XA Contusion of scalp, initial encounter (principal); F03.90 Unspecified dementia, unspecified severity, without behavioral disturbance, psychotic disturbance, mood disturbance, and anxiety; J43.9 Emphysema, unspecified; I10 Essential (primary) hypertension; K58.9 Irritable bowel syndrome, unspecified; Z66 Do not resuscitate; Z85.828 Personal history of other malignant neoplasm of skin; Z87.19 Personal history of other diseases of the digestive system; Z98.49 Cataract extraction status, unspecified eye; W18.30XA Fall on same level, unspecified, initial encounter; M16.0 Bilateral primary osteoarthritis of hip; M47.812 Spondylosis without myelopathy or radiculopathy, cervical region; R90.82 White matter disease, unspecified; I45.10 Unspecified right bundle-branch block; I49.1 Atrial premature depolarization
CPT/HCPCS: 70450; 70486; 71045; 72125; 72170; 81001; 93005; 99284; A9270

== ENCOUNTER 2023-11-24 16:35 | Emergency (ER) | payer MEDICARE, BC, SELFPAY ==
[2023-11-24] VITALS (11 sets, daily range): BP systolic 117–139; BP diastolic 65–80; PULSE 72–100; RESP 14–25; TEMP 37; O2SAT 90–98
--- NOTE | ~2023-11-24 | CT_ITS ---
EXAMINATION: CT cervical spine wo con DATE: 11/24/2023 19:49 INDICATION: Fall with head injury TECHNIQUE: Computed tomography (CT) of the cervical spine was performed without intravenous contrast. Automated exposure control and iterative reconstruction technique were employed. The dose-length pro duct was 122.19 mGy-cm. COMPARISON: 11/17/2023 FINDINGS: Mild reversal of the normal lordosis in the lower cervical spine. Unchanged 2 mm retrolisthesis C5 on C6. Severe osteoarthritis at the atlantoaxial articulation. Chronic mild anterior wedging at C7 and T2. No acute fracture. Moderate disc height loss at C4-C5 and severe disc height loss at C5-C6. Multi level moderate to severe cervical and upper thoracic facet osteoarthritis with solid osseous fusion a cross the right-sided facet joints from C3 through C5 and on the left at C3-C4. There is also multile jayant uncovertebral osteoarthritis. There is multilevel mild central canal and mild to moderate neural foraminal stenosis in the cervical spine. See prior CT report for level by level detail. Atherosclero tic calcification is at the bilateral carotid bulbs. Cervical soft tissues are otherwise unremarkable . A few calcified nodules in the right upper lobe and calcified mediastinal lymph nodes consistent wi th old granulomatous disease. IMPRESSION: 1. Severe cervical spondylosis. No acute osseous abnormality. Reviewed, dictated and finalized at location A. NE INTERN
--- NOTE | ~2023-11-24 | CT_ITS ---
EXAMINATION: CT brain wo con DATE: 11/24/2023 19:49 INDICATION: Fall with head injury TECHNIQUE: Computed tomography (CT) of the head was performed without intravenous contrast. Sagittal and coronal reconstructions were performed. The mA was adjusted according to patient size. Iterative reconstruction technique was employed. The dose-length product was 983.67 mGy-cm. COMPARISON: head CT dated 11/17/2023 and 09/28/2023 FINDINGS: Right frontal scalp hematoma. No calvarial fracture. Unchanged slight asymmetry to the tentorium whic h appears slightly thicker with hypoattenuation on the right. This is unchanged since the most recent CT but appears new since study from 2 months prior suggesting a small subacute subdural hematoma. No other acute intracranial hemorrhage. No acute infarction or abnormal extra axial fluid collection. T here is moderate scattered white matter hypoattenuation consistent with chronic small vessel ischemic disease. Symmetric prominence of the sulci and ventricles consistent with moderate age-appropriate d iffuse cerebral volume loss. No mass/mass effect. Changes of bilateral intraocular lens replacement. The orbits, paranasal sinuses and mastoid air cells are normal. IMPRESSION: 1. No fracture or acute intracranial process. 2. No interval change in a likely subacute very small subdural hematoma along the right side of the t entorium. Reviewed, dictated and finalized at location A. RPRETER IMPRESSION: 1. No fracture or acute intracranial process. 2. No interval change in a likely subacute very small subdural hematoma along t he right side of the tentorium.
--- NOTE | ~2023-11-24 | XR_ITS ---
EXAMINATION: XR chest 1V DATE: 11/24/2023 17:59 INDICATION: Acute mental status. Fall. TECHNIQUE: frontal view of the chest was obtained. COMPARISON: Chest radiograph dated 11/17/[address] dated 08/07/2023 FINDINGS: Calcified nodules in the right upper lobe and calcified right hilar lymph nodes consistent with old g ranulomatous disease. Decrease in the previously seen interstitial pattern in the lungs with minimal residual interstitial opacities the left upper and lower lung zones consistent with mild pulmonary ed мария. No pleural effusion or pneumothorax. Heart size is normal. IMPRESSION: 1. Mild interstitial pattern in the left upper and lower lung zones, decreased since the prior study and would favor mild pulmonary edema over pneumonia or chronic interstitial lung disease. Reviewed, dictated and finalized at location A. UNT SOLUTIONS ANALYST IMPRESSION: 1. Mild interstitial pattern in the left upper and lower lung zones, decreased since the prior study and would favor mild pulmonary edema over pneumonia or ch ronic interstitial lung disease.
--- NOTE | ~2023-11-24 | XR_ITS ---
EXAMINATION: XR pelvis 1-2V DATE: 11/24/2023 17:59 INDICATION: Fall. Altered mental status. TECHNIQUE: An anteroposterior view of the pelvis was obtained. COMPARISON: 11/17/2023 FINDINGS: Old fracture deformity at the right superior and inferior pubic rami. Leg screw fixation of an old he aled subcapital fracture of the proximal left femur. No acute fracture. Minimal osteoarthritis at the bilateral hip and sacroiliac joints. Moderate lower lumbar spondylosis. IMPRESSION: 1. No acute osseous abnormality. Reviewed, dictated and finalized at location A. TABLE TESTER
--- NOTE | 2023-11-24 17:44 | ED.FALL ---
HPI - Fall General Chief Complaint: Fall Stated Complaint: FALL, HEAD INJURY, HX DEMENTIA Time Seen by Provider: 11/24/23 17:33 Source: EMS Mode of arrival: EMS Limitations: dementia History of Present Illness HPI Narrative: This is a 88 year old female that presents to the ER after a fall today at her facility with head injury. Patient arrives via EMS. Unable to provide any history. She has a hematoma on the scalp. Related Data Home Medications Medication Instructions Recorded Confirmed amlodipine 5 mg tablet 5 mg PO DAILY 01/19/20 06/02/23 quetiapine 25 mg tablet 50 mg PO BID 03/19/20 06/02/23 fesoterodine 4 mg tablet,extended 4 mg PO DAILY 05/22/23 06/02/23 release 24 hr fluoxetine 10 mg capsule 10 mg PO DAILY 05/22/23 06/02/23 fluoxetine 20 mg capsule 20 mg PO DAILY 05/22/23 06/02/23 mirtazapine 30 mg tablet 15 mg PO DAILY 05/22/23 06/02/23 trazodone 50 mg tablet 50 mg PO HS 05/22/23 06/02/23 trimethoprim 100 mg tablet 100 mg PO DAILY 05/22/23 06/02/23 baclofen 5 mg tablet 5 mg PO BID 07/11/23 07/11/23 buspirone 10 mg tablet mg 07/11/23 lorazepam 0.5 mg tablet 0.5 mg PO BID PRN Anxiety 07/11/23 Allergies Allergy/AdvReac Type Severity Reaction Status Date / Time erythromycin base Allergy Intermediate HIVES, Verified 09/28/23 08:13 SWELLING Sulfa (Sulfonamide Allergy Unknown Verified 09/28/23 08:13 Antibiotics) Review of Systems Review of Systems: ROS unobtainable: Yes unobtainable due to medical condition PMFSH Past Medical History Medical History Arthritis Chronic neck pain Dementia Diarrhea Dizziness Emphysema/COPD Hair loss History of rectal polyps HTN (hypertension) IBS (irritable bowel syndrome) Light headedness Memory loss Nausea Shingles Skin cancer Urinary frequency Vertigo Vision abnormalities Wears glasses Surgical History Surgical History History of hip surgery Hx of cataract surgery Hx of dilation and curettage Family History Family History Sibling Family history of lung cancer Patient's brother is in good health Patient's brother is Mother Family history of malignant neoplasm Patient's mother is CHF (congestive heart failure) Father Family history of lung cancer Patient's father is Mother No problems noted. Social History Social History Social History: The patient lives in [place] with her of nearly 65 years. They have 5 children. Her daughter Chelsi Rouse is her healthcare power of bankruptcy attorney, and the patient is a do not resuscitate. She is a lifelong nonsmoker. No alcohol or drug use. Smoking status: Never smoker Alcohol intake: never Substance use: never Substance use type: does not use Spiritual care concerns: No Agree to blood products: Yes Exam Narrative: GENERAL: Elderly, thin, and in no acute distress. HEAD: Normocephalic. Hematoma to the left scalp with 2cm linear laceration EYES: PERRLA and EOMI. ENT: Nares clear, no rhinorrhea or epistaxis. Mucous membranes moist. Oropharynx without tonsillar hypertrophy exudate or other lesions. Bilateral TMs pearly sanchez non-bulging NECK: Supple. No adenopathy or masses. CHEST: Clear to auscultation. No respiratory distress. No wheezes rales or rhonchi HEART: Regular rate and rhythm. No murmur heard. Normal peripheral pulses. ABDOMEN: Soft, nontender, nondistended, normal active bowel sounds. BACK: No midline spinal tenderness EXTREMITIES: Normal range of motion. No edema or obvious deformity. SKIN: Warm, dry, no rash. NEURO: No focal deficits. Alert and oriented x1. Moving all extremities. Able to stand and pivot onto bed Course Course Emergency Course: Patient's son and daughter were updated
--- NOTE | 2023-11-24 19:05 | PC.NURSE ---
pt was unable to stay still for CT scan, pt also has bruising noted to the RIGHT hip, provider notified
[2023-11-24] MEDS: LORazepam INJ (*CRX) 2 MG/ML VIAL 0.5 MG IM (19:26)
[2023-11-24] MEDS: TETANUS,DIPHTHERIA,AC PERTUSSIS ADULT (0.5 ML) BOOSTRIX IM (21:37)
--- NOTE | 2023-11-24 21:51 | PC.NURSE ---
called TOMAS Rocha at [facility] and provided discharge instructions. all questions answered.
== END 2023-11-24 22:21 ==
PROVIDERS: Emergency Provider Physician Assistant
DX: S00.03XA Contusion of scalp, initial encounter (principal); Z23 Encounter for immunization; F03.90 Unspecified dementia, unspecified severity, without behavioral disturbance, psychotic disturbance, mood disturbance, and anxiety; J43.9 Emphysema, unspecified; I10 Essential (primary) hypertension; M19.90 Unspecified osteoarthritis, unspecified site; Z66 Do not resuscitate; Z87.19 Personal history of other diseases of the digestive system; Z85.828 Personal history of other malignant neoplasm of skin; Z98.49 Cataract extraction status, unspecified eye; M47.812 Spondylosis without myelopathy or radiculopathy, cervical region; W19.XXXA Unspecified fall, initial encounter
CPT/HCPCS: 12001; 70450; 71045; 72125; 72170; 90471; 90715; 96372; 99284; J2060